=== PATIENT | male | born 1960 | race Caucasian/White ===

== ENCOUNTER 2019-02-16 10:04 | Inpatient (IN) ==
[2019-02-16] MEDS ORDERED: methylPREDNISolone SOD SUC 125 MG/2 ML VIAL IV STA (10:28)
[2019-02-16] MEDS ORDERED: SODIUM CHLORIDE 0.9% 1,000 ML IV STA (10:28)
[2019-02-16] MEDS ORDERED: ALBUTEROL/IPRATROPIUM 3 ML NEB RESP TX STA (10:28)
[2019-02-16] MEDS ORDERED: ONDANSETRON 4 MG/2 ML VIAL IV STA (10:28)
[2019-02-16] MEDS ORDERED: MORPHINE 4 MG/1 ML VIAL IV STA (10:28)
[2019-02-16 10:35] LABS: Basophils # 0.1 10*3/uL (0.0-0.2); Basophils % 0.2 % (0.0-0.8); Eosinophils % 0.1 % (0.00-10.9); Hematocrit 40.9 VOL% (42.0-52.0); Hemoglobin 13.1 GM/DL (14.0-18.0); Immature Granulocytes % 1.8 %; Immature Granulocytes Absolute 0.52 #; Lymphocytes % 3.5 % (21.2-54.2); Mean Corpuscular Volume 89.9 FL (87-102); Mean Platelet Volume 11.1 FL (9.6-12.0); Neutrophils % 88.4 % (38.7-73.9); Platelet Count 333 T/CUMM (130-400); Red Blood Count 4.55 MC/CUMM (3.8-5.5); Red Cell Distribution Width 14.5 % (9.3-17.3)
[2019-02-16 10:53] LABS: ABG Base Excess 4.1 MMOL/L (-2.5-2.5); ABG Oxygen Saturation 93.4 % (95-100); ABG PH 7.372 (7.35-7.45); ABG PO2 74.2 MM HG (80-95); ABG TCO2 26.9 MMOL/L (23-27); Allen Test Positive
[2019-02-16 11:14] LABS: Albumin 1.7 G/DL (3.4-5.0); Calcium 8.1 MG/DL (8.5-10.1); Osmolality,Calculated 279.1 MOS/KG (273-304); Total Protein 5.9 G/DL (6.4-8.3)
[2019-02-16] MEDS ORDERED: LEVOFLOXACIN INJ 750 MG in PREMIX 1 EACH IV STA (11:34)
[2019-02-16 12:04] LABS: Band Neutrophils 8 % (0-10); Lymphocytes 1 % (20-55); Segmented Neutrophils 85 % (50-85); Total Cells Counted 100
[2019-02-16 12:06] LABS: Platelet Estimate Normal; Polychromasia Slight
[2019-02-16] MEDS ORDERED: ONDANSETRON 4 MG/2 ML VIAL IV PRN (12:52)
[2019-02-16] MEDS ORDERED: guaiFENesin/DM ER 600-30 MG TABLET PO PRN (12:52)
[2019-02-16] MEDS ORDERED: ACETAMINOPHEN 325 MG TABLET PO PRN (12:52)
[2019-02-16] MEDS ORDERED: ALBUTEROL 2.5 MG/3 ML NEB RESP TX PRN (13:22)
[2019-02-16] MEDS: ENOXAPARIN 40 MG/0.4 ML SYRINGE SUBCUT SCH (14:30)
[2019-02-16] MEDS: PIPERACILLIN/TAZOBACTAM 3,375 MG in SODIUM CHLORIDE 0.9% 100 ML IV SCH ×2 (14:32→21:25)
[2019-02-16] MEDS: SODIUM CHLORIDE 0.9% 1,000 ML IV SCH (14:32)
[2019-02-16] MEDS: ALBUTEROL/IPRATROPIUM 3 ML NEB RESP TX SCH (19:38)
[2019-02-16 21:09] LABS: Apearance,Urine CLEAR (Clear); Bacteria,Urine Occasional /HPF (Few); Bilirubin,Urine Negative (Negative); Blood, Urine Negative (Negative); Glucose,Urine (UA) Negative (Negative); Ketones,Urine Negative (Negative); Mucus,Urine Occasional /LPF (Occasional); Nitrite,Urine Negative (Negative); Protein,Urine Negative; RBC,Urine 7 /HPF (0-4); Squamous Epithelial Cell,Urine Occasional /HPF (0-10); Urine Color Amber (Yellow); Urine Specific Gravity 1.026 (1.001-1.035); WBC,Urine 75 /HPF (0-6)
[2019-02-16] MEDS: methylPREDNISolone SOD SUC 40 MG/1 ML VIAL IV SCH (21:18)
[2019-02-16 21:40] LABS: Barbiturates Screen,Urine Negative (Negative); Benzodiazepines Screen,Urine Negative (Negative); Cannabinoid Screen,Urine Negative (Negative); Opiate Screen,Urine Positive (Negative); Phencyclidine Screen,Urine Negative (Negative)
[2019-02-17] MEDS: ALBUTEROL/IPRATROPIUM 3 ML NEB RESP TX SCH ×4 (01:10→19:01)
[2019-02-17] MEDS: methylPREDNISolone SOD SUC 40 MG/1 ML VIAL IV SCH ×3 (04:10→20:31)
[2019-02-17] MEDS: SODIUM CHLORIDE 0.9% 1,000 ML IV SCH (04:13)
[2019-02-17 05:08] LABS: Basophils # 0.1 10*3/uL (0.0-0.2); Basophils % 0.4 % (0.0-0.8); Hemoglobin 12.1 GM/DL (14.0-18.0); Immature Granulocytes % 1.2 %; Immature Granulocytes Absolute 0.35 #; Lymphocytes # 0.7 10*3/uL (1.4-4.0); Lymphocytes % 2.4 % (21.2-54.2); Mean Corpuscular HGB Conc 33.6 GM/DL (32-36); Mean Corpuscular Volume 89.1 FL (87-102); Mean Platelet Volume 10.9 FL (9.6-12.0); Monocytes % 2.4 % (1.7-12.7); Neutrophils % 93.6 % (38.7-73.9); Platelet Count 378 T/CUMM (130-400); Red Blood Count 4.04 MC/CUMM (3.8-5.5); Red Cell Distribution Width 14.6 % (9.3-17.3); White Blood Count 29.7 T/CUMM (4-12)
[2019-02-17 05:29] LABS: Albumin 1.3 G/DL (3.4-5.0); Bilirubin,Total 0.5 MG/DL (0.2-1.0); Calcium 8.5 MG/DL (8.5-10.1); Osmolality,Calculated 281.8 MOS/KG (273-304); Risk Ratio 4.21; Total Protein 5.9 G/DL (6.4-8.3); VLDL CHOLESTEROL 16.2 MG/DL
[2019-02-17 05:48] LABS: Band Neutrophils 2 % (0-10); Lymphocytes 2 % (20-55); Segmented Neutrophils 95 % (50-85); Total Cells Counted 100
[2019-02-17 05:49] LABS: Anisocytosis 1+; Platelet Estimate Adequate
[2019-02-17] MEDS: PIPERACILLIN/TAZOBACTAM 3,375 MG in SODIUM CHLORIDE 0.9% 100 ML IV SCH ×3 (06:40→21:24)
[2019-02-17] MEDS: PANTOPRAZOLE 40 MG TABLET PO SCH (08:51)
[2019-02-17] MEDS ORDERED: FUROSEMIDE 40 MG/4 ML VIAL IV ONE (09:16)
[2019-02-17] MEDS: MORPHINE 4 MG/1 ML VIAL IV PRN ×2 (11:03→16:12)
[2019-02-17] MEDS: LEVOFLOXACIN INJ 750 MG in PREMIX 1 EACH IV SCH (11:07)
[2019-02-17] MEDS: ENOXAPARIN 40 MG/0.4 ML SYRINGE SUBCUT SCH (16:14)
[2019-02-17] MEDS: LACTULOSE 20 GM/30 ML UDCUP PO PRN ×2 (18:32→21:23)
[2019-02-17] MEDS ORDERED: SODIUM PHOSPHATE ENEMA 133 ML BOTTLE RECTAL ONE (22:05)
[2019-02-18] MEDS: ALBUTEROL/IPRATROPIUM 3 ML NEB RESP TX SCH ×4 (00:03→19:44)
[2019-02-18] MEDS: methylPREDNISolone SOD SUC 40 MG/1 ML VIAL IV SCH ×3 (04:09→21:37)
[2019-02-18 05:06] LABS: Basophils # 0.1 10*3/uL (0.0-0.2); Basophils % 0.4 % (0.0-0.8); Hematocrit 34.6 VOL% (42.0-52.0); Hemoglobin 11.1 GM/DL (14.0-18.0); Immature Granulocytes % 1.4 %; Immature Granulocytes Absolute 0.41 #; Lymphocytes # 0.9 10*3/uL (1.4-4.0); Mean Corpuscular HGB Conc 32.1 GM/DL (32-36); Mean Corpuscular Volume 91.1 FL (87-102); Mean Platelet Volume 10.5 FL (9.6-12.0); Monocytes % 2.7 % (1.7-12.7); NRBC # 0.02 10*3/uL; Neutrophils % 92.5 % (38.7-73.9); Platelet Count 453 T/CUMM (130-400); Red Cell Distribution Width 14.6 % (9.3-17.3); White Blood Count 29.8 T/CUMM (4-12)
[2019-02-18 05:27] LABS: Hypochromasia 1+; Platelet Estimate Adequate
[2019-02-18 05:38] LABS: Albumin 1.5 G/DL (3.4-5.0); Bilirubin,Total 0.7 MG/DL (0.2-1.0); Calcium 8.7 MG/DL (8.5-10.1); Osmolality,Calculated 286.5 MOS/KG (273-304)
[2019-02-18] MEDS: PIPERACILLIN/TAZOBACTAM 3,375 MG in SODIUM CHLORIDE 0.9% 100 ML IV SCH ×3 (06:05→21:37)
[2019-02-18] MEDS ORDERED: SODIUM PHOSPHATE ENEMA 133 ML BOTTLE RECTAL ONE (06:11)
[2019-02-18] MEDS: PANTOPRAZOLE 40 MG TABLET PO SCH (09:50)
[2019-02-18] MEDS: ENOXAPARIN 40 MG/0.4 ML SYRINGE SUBCUT SCH (09:50)
[2019-02-18] MEDS: OSELTAMIVIR 75 MG CAPSULE PO SCH ×2 (09:50→21:37)
[2019-02-18] MEDS: LEVOFLOXACIN INJ 750 MG in PREMIX 1 EACH IV SCH (11:50)
[2019-02-18] MEDS: LACTULOSE 20 GM/30 ML UDCUP PO PRN (17:26)
[2019-02-18] MEDS: MORPHINE 4 MG/1 ML VIAL IV PRN (21:37)
[2019-02-19] MEDS: ALBUTEROL/IPRATROPIUM 3 ML NEB RESP TX SCH ×4 (01:04→19:13)
[2019-02-19 05:27] LABS: Basophils # 0.1 10*3/uL (0.0-0.2); Basophils % 0.3 % (0.0-0.8); Hematocrit 35.8 VOL% (42.0-52.0); Hemoglobin 11.8 GM/DL (14.0-18.0); Immature Granulocytes % 1.7 %; Immature Granulocytes Absolute 0.38 #; Lymphocytes # 0.9 10*3/uL (1.4-4.0); Lymphocytes % 3.9 % (21.2-54.2); Mean Corpuscular Volume 90.4 FL (87-102); Mean Platelet Volume 10.4 FL (9.6-12.0); Neutrophils % 91.1 % (38.7-73.9); Platelet Count 502 T/CUMM (130-400); Red Blood Count 3.96 MC/CUMM (3.8-5.5); Red Cell Distribution Width 14.6 % (9.3-17.3); White Blood Count 22.2 T/CUMM (4-12)
[2019-02-19] MEDS: methylPREDNISolone SOD SUC 40 MG/1 ML VIAL IV SCH ×3 (05:33→21:15)
[2019-02-19] MEDS: PIPERACILLIN/TAZOBACTAM 3,375 MG in SODIUM CHLORIDE 0.9% 100 ML IV SCH ×3 (05:38→22:30)
[2019-02-19 05:51] LABS: Anisocytosis 1+; Band Neutrophils 2 % (0-10); Lymphocytes 4 % (20-55); Metamyelocytes 1 %; Platelet Estimate Increased; Segmented Neutrophils 91 % (50-85); Total Cells Counted 100; Toxic Granulation 1+
[2019-02-19 06:15] LABS: Albumin 1.6 G/DL (3.4-5.0); Bilirubin,Total 0.4 MG/DL (0.2-1.0); Osmolality,Calculated 283.5 MOS/KG (273-304)
[2019-02-19 09:07] LABS: Band Neutrophils 2 % (0-10); Lymphocytes 4 % (20-55); Segmented Neutrophils 91 % (50-85); Total Cells Counted 100
[2019-02-19] MEDS: ENOXAPARIN 40 MG/0.4 ML SYRINGE SUBCUT SCH (09:26)
[2019-02-19] MEDS: PANTOPRAZOLE 40 MG TABLET PO SCH (09:27)
[2019-02-19] MEDS: OSELTAMIVIR 75 MG CAPSULE PO SCH ×2 (09:27→21:15)
[2019-02-19] MEDS: LEVOFLOXACIN INJ 750 MG in PREMIX 1 EACH IV SCH (09:27)
[2019-02-19] MEDS: LACTULOSE 20 GM/30 ML UDCUP PO PRN ×2 (09:27→21:15)
[2019-02-19] MEDS: SODIUM CHLORIDE 0.9% 1,000 ML IV SCH (14:45)
[2019-02-20] MEDS: ALBUTEROL/IPRATROPIUM 3 ML NEB RESP TX SCH ×4 (01:09→19:32)
[2019-02-20] MEDS: methylPREDNISolone SOD SUC 40 MG/1 ML VIAL IV SCH ×3 (05:29→20:30)
[2019-02-20] MEDS: SODIUM CHLORIDE 0.9% 1,000 ML IV SCH ×2 (05:32→18:39)
[2019-02-20 05:41] LABS: Basophils # 0.1 10*3/uL (0.0-0.2); Basophils % 0.3 % (0.0-0.8); Hematocrit 38.1 VOL% (42.0-52.0); Immature Granulocytes % 1.8 %; Immature Granulocytes Absolute 0.35 #; Lymphocytes # 0.7 10*3/uL (1.4-4.0); Lymphocytes % 3.9 % (21.2-54.2); Mean Corpuscular HGB Conc 31.5 GM/DL (32-36); Mean Corpuscular Volume 91.1 FL (87-102); Mean Platelet Volume 9.9 FL (9.6-12.0); Monocytes % 3.2 % (1.7-12.7); Neutrophils % 90.8 % (38.7-73.9); Platelet Count 514 T/CUMM (130-400); Red Blood Count 4.18 MC/CUMM (3.8-5.5); Red Cell Distribution Width 14.5 % (9.3-17.3)
[2019-02-20 06:05] LABS: Albumin 1.5 G/DL (3.4-5.0); Bilirubin,Total 0.5 MG/DL (0.2-1.0); Calcium 8.3 MG/DL (8.5-10.1); Osmolality,Calculated 282.7 MOS/KG (273-304); Total Protein 5.6 G/DL (6.4-8.3)
[2019-02-20] MEDS: PIPERACILLIN/TAZOBACTAM 3,375 MG in SODIUM CHLORIDE 0.9% 100 ML IV SCH ×2 (06:09→15:55)
[2019-02-20 06:21] LABS: Band Neutrophils 2 % (0-10); Lymphocytes 1 % (20-55); Segmented Neutrophils 96 % (50-85); Total Cells Counted 100
[2019-02-20 06:22] LABS: Anisocytosis 1+; Ovalocytes Few; Platelet Estimate Increased
[2019-02-20] MEDS: LACTULOSE 20 GM/30 ML UDCUP PO PRN (09:09)
[2019-02-20] MEDS: OSELTAMIVIR 75 MG CAPSULE PO SCH ×2 (09:09→20:30)
[2019-02-20] MEDS: ENOXAPARIN 40 MG/0.4 ML SYRINGE SUBCUT SCH (09:09)
[2019-02-20] MEDS: PANTOPRAZOLE 40 MG TABLET PO SCH (10:19)
[2019-02-20] MEDS: LEVOFLOXACIN INJ 750 MG in PREMIX 1 EACH IV SCH (10:19)
[2019-02-20 20:12] VITALS: BP 133/89
== END 2019-02-20 21:52 | disposition home or self-care (01) | DRG 193 ==
LOC: EDUNIT# → N.ED 10:04 → N.EDINP 12:52 → N.2E 14:16
PROVIDERS: ADMIT Internal Medicine; ATTEND Internal Medicine

== ENCOUNTER 2019-04-02 20:55 | Inpatient (IN) ==
[2019-04-02 22:55] LABS: Alanine Aminotransferase 9 U/L (16-61); Alkaline Phosphatase 114 U/L (45-117); Aspartate Amino Transferase 14 U/L (0-37); Bilirubin,Total < 0.39 MG/DL (0.2-1.0); Blood Urea Nitrogen 15 MG/DL (7-18); Calcium 9.3 MG/DL (8.5-10.1); Glucose 112 MG/DL (74-106); Osmolality,Calculated 276.7 MOS/KG (273-304); Total Protein 7.5 G/DL (6.4-8.3)
[2019-04-02] MEDS ORDERED: methylPREDNISolone SOD SUC 125 MG/2 ML VIAL IV STA (23:01)
[2019-04-02] MEDS ORDERED: MORPHINE 4 MG/1 ML VIAL IV STA (23:01)
[2019-04-02] MEDS ORDERED: SODIUM CHLORIDE 0.9% 500 ML IV STA (23:01)
[2019-04-02] MEDS ORDERED: ONDANSETRON 4 MG/2 ML VIAL IV STA (23:01)
[2019-04-02 23:12] LABS: Basophils # 0.1 10*3/uL (0.0-0.2); Basophils % 0.4 % (0.0-0.8); Eosinophils # 0.3 10*3/uL (0.0-0.87); Eosinophils % 1.8 % (0.00-10.9); Hematocrit 27.6 VOL% (42.0-52.0); Hemoglobin 8.4 GM/DL (14.0-18.0); Immature Granulocytes % 0.7 %; Immature Granulocytes Absolute 0.13 #; Lymphocytes # 1.9 10*3/uL (1.4-4.0); Lymphocytes % 10.3 % (21.2-54.2); Mean Corpuscular HGB Conc 30.4 GM/DL (32-36); Mean Corpuscular Volume 90.8 FL (87-102); Mean Platelet Volume 9.8 FL (9.6-12.0); Monocytes % 7.5 % (1.7-12.7); Neutrophils % 79.3 % (38.7-73.9); Platelet Count 586 T/CUMM (130-400); Red Blood Count 3.04 MC/CUMM (3.8-5.5); Red Cell Distribution Width 13.8 % (9.3-17.3); White Blood Count 18.8 T/CUMM (4-12)
[2019-04-02] MEDS ORDERED: ALBUTEROL 2.5 MG/3 ML NEB RESP TX SCH (23:30)
[2019-04-02 23:49] LABS: PT Patient Result 11.1 SECS
[2019-04-03] MEDS ORDERED: ONDANSETRON 4 MG/2 ML VIAL IV PRN (02:17)
[2019-04-03] MEDS: ALBUTEROL/IPRATROPIUM 3 ML NEB RESP TX SCH ×6 (03:48→23:36)
[2019-04-03] MEDS: AZITHROMYCIN INJ 500 MG in SODIUM CHLORIDE 0.9% 250 ML IV SCH (04:10)
[2019-04-03] MEDS: SODIUM CHLORIDE 0.9% 1,000 ML IV SCH ×3 (04:10→21:26)
[2019-04-03 05:17] LABS: Basophils % 0.1 % (0.0-0.8); Hematocrit 30.7 VOL% (42.0-52.0); Hemoglobin 9.3 GM/DL (14.0-18.0); Immature Granulocytes % 0.6 %; Immature Granulocytes Absolute 0.12 #; Lymphocytes # 0.4 10*3/uL (1.4-4.0); Lymphocytes % 1.8 % (21.2-54.2); Mean Corpuscular HGB Conc 30.3 GM/DL (32-36); Mean Corpuscular Volume 93.6 FL (87-102); Mean Platelet Volume 10.5 FL (9.6-12.0); Monocytes % 0.6 % (1.7-12.7); Neutrophils % 96.9 % (38.7-73.9); Platelet Count 574 T/CUMM (130-400); Red Blood Count 3.28 MC/CUMM (3.8-5.5); Red Cell Distribution Width 13.9 % (9.3-17.3); White Blood Count 21.7 T/CUMM (4-12)
[2019-04-03 05:33] LABS: Calcium 9.5 MG/DL (8.5-10.1); Osmolality,Calculated 284.5 MOS/KG (273-304)
[2019-04-03 05:40] LABS: Hypochromasia 1+; Lymphocytes 1 % (20-55); Platelet Estimate Adequate; Segmented Neutrophils 98 % (50-85); Total Cells Counted 100
[2019-04-03] MEDS: ACETAMINOPHEN 500 MG TABLET PO SCH ×4 (06:34→23:18)
[2019-04-03] MEDS: ENOXAPARIN 40 MG/0.4 ML SYRINGE SUBCUT SCH (09:00)
[2019-04-03] MEDS: methylPREDNISolone SOD SUC 40 MG/1 ML VIAL IV SCH ×2 (09:00→17:22)
[2019-04-03] MEDS: PANTOPRAZOLE 40 MG TABLET PO SCH (09:00)
[2019-04-03 18:37] LABS: Apearance,Urine CLEAR (Clear); Bacteria,Urine Occasional /HPF (Few); Bilirubin,Urine Negative (Negative); Blood, Urine Negative (Negative); Glucose,Urine (UA) >=500 mg/dL (Negative); Hyaline Casts,Urine 1 /LPF (0-3); Ketones,Urine Negative (Negative); Mucus,Urine Occasional /LPF (Occasional); Nitrite,Urine Negative (Negative); Protein,Urine Negative; RBC,Urine 3 /HPF (0-4); Squamous Epithelial Cell,Urine Occasional /HPF (0-10); Urine Color Yellow (Yellow); Urine Specific Gravity 1.032 (1.001-1.035); WBC,Urine 3 /HPF (0-6)
[2019-04-03 18:43] LABS: Barbiturates Screen,Urine Negative (Negative); Benzodiazepines Screen,Urine Negative (Negative); Cannabinoid Screen,Urine Negative (Negative); Opiate Screen,Urine Positive (Negative); Phencyclidine Screen,Urine Negative (Negative)
[2019-04-04] MEDS: methylPREDNISolone SOD SUC 40 MG/1 ML VIAL IV SCH ×2 (01:52→09:44)
[2019-04-04] MEDS: AZITHROMYCIN INJ 500 MG in SODIUM CHLORIDE 0.9% 250 ML IV SCH (01:53)
[2019-04-04] MEDS: ALBUTEROL/IPRATROPIUM 3 ML NEB RESP TX SCH ×4 (03:10→15:59)
[2019-04-04] MEDS: ACETAMINOPHEN 500 MG TABLET PO SCH ×3 (05:53→18:19)
[2019-04-04] MEDS: ENOXAPARIN 40 MG/0.4 ML SYRINGE SUBCUT SCH (08:39)
[2019-04-04] MEDS: PANTOPRAZOLE 40 MG TABLET PO SCH (08:40)
[2019-04-04] MEDS ORDERED: predniSONE 10 MG TABLET PO SCH (09:30)
[2019-04-04] MEDS ORDERED: KETOROLAC 30 MG/1 ML VIAL IM ONE (14:39)
[2019-04-04 16:40] VITALS: BP 105/70
== END 2019-04-04 18:53 | disposition home or self-care (01) | DRG 140 ==
LOC: N.ED 20:55 → N.EDINP 04-03 02:17 → N.5E 04-03 03:54
PROVIDERS: ADMIT Internal Medicine Geriatric Medicine; ATTEND Internal Medicine Geriatric Medicine

== ENCOUNTER 2019-11-05 18:16 | Inpatient (IN) ==
[2019-11-05] MEDS ORDERED: ONDANSETRON 4 MG/2 ML VIAL IV STA (18:35)
[2019-11-05] MEDS ORDERED: ASPIRIN 325 MG TABLET PO STA (18:35)
[2019-11-05] MEDS ORDERED: MORPHINE 4 MG/1 ML VIAL IV STA (18:35)
[2019-11-05 18:49] LABS: Basophils # 0.1 10*3/uL (0.0-0.2); Basophils % 0.7 % (0.0-0.8); Eosinophils # 0.3 10*3/uL (0.0-0.87); Eosinophils % 2.9 % (0.00-10.9); Hematocrit 40.8 VOL% (42.0-52.0); Hemoglobin 12.7 GM/DL (14.0-18.0); Immature Granulocytes % 0.3 %; Immature Granulocytes Absolute 0.03 #; Lymphocytes # 2.9 10*3/uL (1.4-4.0); Lymphocytes % 33.1 % (21.2-54.2); Mean Corpuscular HGB Conc 31.1 GM/DL (32-36); Mean Corpuscular Volume 99.3 FL (87-102); Mean Platelet Volume 10.5 FL (9.6-12.0); Monocytes % 8.6 % (1.7-12.7); Neutrophils % 54.4 % (38.7-73.9); Platelet Count 195 T/CUMM (130-400); Red Blood Count 4.11 MC/CUMM (3.8-5.5); Red Cell Distribution Width 13.6 % (9.3-17.3); White Blood Count 8.7 T/CUMM (4-12)
[2019-11-05 19:06] LABS: INR 0.9; PT Patient Result 9.9 SECS (9.6-12.2)
[2019-11-05 19:10] LABS: Alanine Aminotransferase 11 U/L (16-61); Alkaline Phosphatase 113 U/L (45-117); Aspartate Amino Transferase 11 U/L (0-37); Bilirubin,Total < 0.39 MG/DL (0.2-1.0); Blood Urea Nitrogen 15 MG/DL (7-18); Calcium 8.6 MG/DL (8.5-10.1); Estimated Glom Filtration Rate 96 ML/MIN; Glucose 104 MG/DL (74-106); Osmolality,Calculated 279.4 MOS/KG (273-304); Total Protein 6.1 G/DL (6.4-8.3)
[2019-11-05 19:18] LABS: Apearance,Urine CLEAR (Clear); Bilirubin,Urine Negative (Negative); Blood, Urine Negative (Negative); Glucose,Urine (UA) Negative (Negative); Ketones,Urine Negative (Negative); Mucus,Urine Occasional /LPF (Occasional); Nitrite,Urine Negative (Negative); Protein,Urine Negative; Squamous Epithelial Cell,Urine Occasional /HPF (0-10); Urine Color Yellow (Yellow); Urine Specific Gravity 1.041 (1.001-1.035)
[2019-11-05 19:24] LABS: Barbiturates Screen,Urine Negative (Negative); Benzodiazepines Screen,Urine Negative (Negative); Cannabinoid Screen,Urine Negative (Negative); Opiate Screen,Urine Negative (Negative); Phencyclidine Screen,Urine Negative (Negative)
[2019-11-05] MEDS ORDERED: ONDANSETRON 4 MG/2 ML VIAL IV PRN (20:44)
[2019-11-05 21:13] LABS: Risk Ratio 3.59; VLDL CHOLESTEROL 38.6 MG/DL
[2019-11-05 21:45] LABS: Troponin I < 0.015 NG/ML (0.00-0.045)
[2019-11-05] MEDS: ENOXAPARIN 40 MG/0.4 ML SYRINGE SUBCUT SCH (22:46)
[2019-11-05] MEDS: ACETAMINOPHEN 325 MG TABLET PO PRN (22:47)
[2019-11-05] MEDS: DOXYCYCLINE HYCLATE 100 MG CAPSULE PO SCH (22:49)
[2019-11-05] MEDS ORDERED: ALBUTEROL/IPRATROPIUM 3 ML NEB RESP TX ONE (23:54)
[2019-11-06] MEDS: ALBUTEROL/IPRATROPIUM 3 ML NEB RESP TX SCH ×4 (00:04→19:45)
[2019-11-06] MEDS ORDERED: INFLUENZA VIRUS VACCINE 0.5 ML SYRINGE IM ONE (00:09)
[2019-11-06 05:34] LABS: Basophils # 0.1 10*3/uL (0.0-0.2); Basophils % 0.8 % (0.0-0.8); Eosinophils # 0.3 10*3/uL (0.0-0.87); Eosinophils % 3.4 % (0.00-10.9); Hematocrit 39.4 VOL% (42.0-52.0); Hemoglobin 11.9 GM/DL (14.0-18.0); Immature Granulocytes % 0.3 %; Immature Granulocytes Absolute 0.03 #; Lymphocytes # 3.4 10*3/uL (1.4-4.0); Lymphocytes % 39.1 % (21.2-54.2); Mean Corpuscular HGB Conc 30.2 GM/DL (32-36); Mean Corpuscular Volume 99.7 FL (87-102); Mean Platelet Volume 10.5 FL (9.6-12.0); Monocytes % 7.6 % (1.7-12.7); Neutrophils % 48.8 % (38.7-73.9); Platelet Count 190 T/CUMM (130-400); Red Blood Count 3.95 MC/CUMM (3.8-5.5); Red Cell Distribution Width 13.7 % (9.3-17.3); White Blood Count 8.6 T/CUMM (4-12)
[2019-11-06 05:59] LABS: Calcium 8.5 MG/DL (8.5-10.1); Osmolality,Calculated 282.1 MOS/KG (273-304)
[2019-11-06 06:04] LABS: Troponin I < 0.015 NG/ML (0.00-0.045)
[2019-11-06] MEDS: DOXYCYCLINE HYCLATE 100 MG CAPSULE PO SCH ×2 (09:14→21:58)
[2019-11-06] MEDS: predniSONE 20 MG TABLET PO SCH (09:14)
[2019-11-06] MEDS: PANTOPRAZOLE 40 MG TABLET PO SCH (09:14)
[2019-11-06] MEDS: NICOTINE 7 MG/24 HR PATCH TRANSDERM SCH (09:14)
[2019-11-06] MEDS: ACETAMINOPHEN 325 MG TABLET PO PRN ×2 (09:20→22:01)
[2019-11-06 09:56] LABS: Troponin I < 0.015 NG/ML (0.00-0.045)
[2019-11-06] MEDS: ENOXAPARIN 40 MG/0.4 ML SYRINGE SUBCUT SCH (21:58)
[2019-11-07] MEDS: ALBUTEROL/IPRATROPIUM 3 ML NEB RESP TX SCH ×4 (01:12→19:32)
[2019-11-07 05:37] LABS: Basophils % 0.4 % (0.0-0.8); Eosinophils % 0.3 % (0.00-10.9); Hematocrit 40.6 VOL% (42.0-52.0); Hemoglobin 12.9 GM/DL (14.0-18.0); Immature Granulocytes % 0.1 %; Immature Granulocytes Absolute 0.01 #; Lymphocytes % 30.6 % (21.2-54.2); Mean Corpuscular HGB Conc 31.8 GM/DL (32-36); Mean Corpuscular Volume 97.4 FL (87-102); Mean Platelet Volume 10.8 FL (9.6-12.0); Monocytes % 8.5 % (1.7-12.7); Neutrophils % 60.1 % (38.7-73.9); Platelet Count 197 T/CUMM (130-400); Red Blood Count 4.17 MC/CUMM (3.8-5.5); Red Cell Distribution Width 13.7 % (9.3-17.3); White Blood Count 9.9 T/CUMM (4-12)
[2019-11-07 06:19] LABS: Calcium 9.2 MG/DL (8.5-10.1); Osmolality,Calculated 280.4 MOS/KG (273-304)
[2019-11-07] MEDS: NICOTINE 7 MG/24 HR PATCH TRANSDERM SCH (08:36)
[2019-11-07] MEDS: PANTOPRAZOLE 40 MG TABLET PO SCH (08:36)
[2019-11-07] MEDS: predniSONE 20 MG TABLET PO SCH (08:36)
[2019-11-07] MEDS: DOXYCYCLINE HYCLATE 100 MG CAPSULE PO SCH ×2 (08:36→21:13)
[2019-11-07] MEDS: ACETAMINOPHEN 325 MG TABLET PO PRN (08:58)
[2019-11-07] MEDS: OMEGA 3 ACID ETHYL ESTERS 1 GM CAPSULE PO SCH ×2 (13:46→21:13)
[2019-11-07] MEDS: ENOXAPARIN 40 MG/0.4 ML SYRINGE SUBCUT SCH (21:13)
[2019-11-08] MEDS: ALBUTEROL/IPRATROPIUM 3 ML NEB RESP TX SCH ×3 (01:54→13:09)
[2019-11-08 05:30] LABS: Calcium 8.9 MG/DL (8.5-10.1); Osmolality,Calculated 277.5 MOS/KG (273-304)
[2019-11-08 08:12] LABS: Basophils # 0.1 10*3/uL (0.0-0.2); Basophils % 0.6 % (0.0-0.8); Eosinophils # 0.1 10*3/uL (0.0-0.87); Eosinophils % 1.5 % (0.00-10.9); Hematocrit 40.6 VOL% (42.0-52.0); Immature Granulocytes % 0.1 %; Immature Granulocytes Absolute 0.01 #; Lymphocytes % 47.6 % (21.2-54.2); Mean Corpuscular Volume 95.8 FL (87-102); Mean Platelet Volume 10.6 FL (9.6-12.0); Monocytes % 6.5 % (1.7-12.7); Neutrophils % 43.7 % (38.7-73.9); Platelet Count 209 T/CUMM (130-400); Red Blood Count 4.24 MC/CUMM (3.8-5.5); Red Cell Distribution Width 13.7 % (9.3-17.3); White Blood Count 8.5 T/CUMM (4-12)
[2019-11-08] MEDS: DOXYCYCLINE HYCLATE 100 MG CAPSULE PO SCH (09:36)
[2019-11-08] MEDS: OMEGA 3 ACID ETHYL ESTERS 1 GM CAPSULE PO SCH (09:36)
[2019-11-08] MEDS: NICOTINE 7 MG/24 HR PATCH TRANSDERM SCH (09:36)
[2019-11-08] MEDS: PANTOPRAZOLE 40 MG TABLET PO SCH (09:37)
[2019-11-08] MEDS: predniSONE 20 MG TABLET PO SCH (09:37)
[2019-11-08 12:53] VITALS: BP 102/65
== END 2019-11-08 17:30 | disposition home or self-care (01) | DRG 140 ==
LOC: EDUNIT# → EDBD → N.ED 18:16 → N.EDINP 18:16 → N.4E 21:09
PROVIDERS: ADMIT Internal Medicine; ATTEND Internal Medicine

== ENCOUNTER 2020-11-09 05:34 | Inpatient (IN) ==
[2020-11-09 06:04] LABS: Basophils # 0.1 10*3/uL (0.0-0.2); Basophils % 0.6 % (0.0-0.8); Eosinophils # 0.1 10*3/uL (0.0-0.87); Eosinophils % 0.9 % (0.00-10.9); Hematocrit 44.6 VOL% (42.0-52.0); Hemoglobin 13.6 GM/DL (14.0-18.0); Immature Granulocytes % 0.3 %; Immature Granulocytes Absolute 0.03 #; Lymphocytes # 2.3 10*3/uL (1.4-4.0); Lymphocytes % 24.8 % (21.2-54.2); Mean Corpuscular HGB Conc 30.5 GM/DL (32-36); Mean Corpuscular Volume 100.5 FL (87-102); Mean Platelet Volume 10.4 FL (9.6-12.0); Monocytes % 8.9 % (1.7-12.7); Neutrophils % 64.5 % (38.7-73.9); Platelet Count 291 T/CUMM (130-400); Red Blood Count 4.44 MC/CUMM (3.8-5.5); Red Cell Distribution Width 14.1 % (9.3-17.3); White Blood Count 9.4 T/CUMM (4-12)
[2020-11-09 06:17] LABS: Albumin 2.9 G/DL (3.4-5.0); Bilirubin,Total 0.4 MG/DL (0.2-1.0); Calcium 8.6 MG/DL (8.5-10.1); Osmolality,Calculated 286.3 MOS/KG (273-304); Potassium 5.1 MMOL/L (3.5-5.1); Total Protein 6.2 G/DL (5.0-7.5)
[2020-11-09] MEDS ORDERED: PIPERACILLIN/TAZOBACTAM 3,375 MG in SODIUM CHLORIDE 0.9% 100 ML IV STA (07:05)
[2020-11-09] MEDS ORDERED: MAGNESIUM SULF RIDER 2 GM in PREMIX 1 EACH IV STA (07:05)
[2020-11-09] MEDS ORDERED: methylPREDNISolone SOD SUC 125 MG/2 ML VIAL IV STA (07:06)
[2020-11-09] MEDS ORDERED: ALBUTEROL NEB SOLN 5 MG/ML 20 ML/BOTTLE CONT NEB STA (07:06)
[2020-11-09] MEDS ORDERED: ETOMIDATE 20 MG/10 ML VIAL IV STA (07:10)
[2020-11-09] MEDS ORDERED: ROCURONIUM 100 MG/10 ML VIAL IV STA ×2 (07:10→08:29)
[2020-11-09] MEDS ORDERED: ETOMIDATE 20 MG/10 ML VIAL IV ONE (07:15)
[2020-11-09] MEDS ORDERED: ROCURONIUM 100 MG/10 ML VIAL IV ONE ×2 (07:16→08:27)
[2020-11-09] MEDS ORDERED: ALBUTEROL 2.5 MG/3 ML NEB RESP TX PRN (07:58)
[2020-11-09] MEDS: FAMOTIDINE 20 MG/2 ML VIAL IV SCH ×2 (08:00→20:21)
[2020-11-09] MEDS: SODIUM CHLORIDE 0.9% 1,000 ML IV SCH ×3 (08:00→20:22)
[2020-11-09 08:13] LABS: ABG Base Excess 3.3 MMOL/L (-2.5-2.5); ABG HCO3 27.4 MMOL/L (20-26); ABG PCO2 46.9 MM HG (35-48); ABG PH 7.398 (7.35-7.45); ABG TCO2 25.1 MMOL/L (23-27); Pt O2 Delivery Device Ventilator
[2020-11-09] MEDS: methylPREDNISolone SOD SUC 40 MG/1 ML VIAL IV SCH ×2 (10:30→17:35)
[2020-11-09] MEDS: cefTRIAXone 1,000 MG in SYRINGE 1 EACH IV SCH (10:35)
[2020-11-09] MEDS: AZITHROMYCIN INJ 250 MG in SODIUM CHLORIDE 0.9% 250 ML IV SCH (12:00)
[2020-11-09] MEDS: ALBUTEROL/IPRATROPIUM 3 ML NEB RESP TX SCH ×2 (15:00→19:23)
[2020-11-10] MEDS: methylPREDNISolone SOD SUC 40 MG/1 ML VIAL IV SCH ×3 (00:01→18:32)
[2020-11-10] MEDS: ALBUTEROL/IPRATROPIUM 3 ML NEB RESP TX SCH ×4 (02:22→19:38)
[2020-11-10] MEDS: SODIUM CHLORIDE 0.9% 1,000 ML IV SCH ×2 (04:00→11:37)
[2020-11-10 04:40] LABS: ABG Base Excess 0.2 MMOL/L (-2.5-2.5); ABG HCO3 26.4 MMOL/L (20-26); ABG PCO2 48.8 MM HG (35-48); ABG PH 7.351 (7.35-7.45); ABG PO2 68.4 MM HG (80-95); ABG TCO2 27.9 MMOL/L (23-27)
[2020-11-10 04:51] LABS: INR 1.2; PT Patient Result 12.7 SECS (9.8-11.9)
[2020-11-10 05:01] LABS: Basophils % 0.1 % (0.0-0.8); Hematocrit 42.6 VOL% (42.0-52.0); Hemoglobin 13.5 GM/DL (14.0-18.0); Immature Granulocytes % 0.4 %; Immature Granulocytes Absolute 0.04 #; Lymphocytes # 0.6 10*3/uL (1.4-4.0); Lymphocytes % 5.6 % (21.2-54.2); Mean Corpuscular HGB Conc 31.7 GM/DL (32-36); Mean Corpuscular Volume 95.9 FL (87-102); Mean Platelet Volume 11.6 FL (9.6-12.0); Monocytes % 3.7 % (1.7-12.7); Neutrophils % 90.2 % (38.7-73.9); Platelet Count 163 T/CUMM (130-400); Red Blood Count 4.44 MC/CUMM (3.8-5.5); Red Cell Distribution Width 13.9 % (9.3-17.3); White Blood Count 11.2 T/CUMM (4-12)
[2020-11-10 05:06] LABS: Hypochromasia 1+; Microcytosis 1+
[2020-11-10 05:07] LABS: Ovalocytes Slight
[2020-11-10 05:13] LABS: Albumin 2.4 G/DL (3.4-5.0); Bilirubin,Total 0.7 MG/DL (0.2-1.0); Calcium 8.1 MG/DL (8.5-10.1); Osmolality,Calculated 287.3 MOS/KG (273-304); Potassium 5.1 MMOL/L (3.5-5.1); Total Protein 5.8 G/DL (5.0-7.5)
[2020-11-10] MEDS ORDERED: DEXTROSE 50% 25 GM/50 ML VIAL IV PRN (08:12)
[2020-11-10] MEDS ORDERED: GLUCAGON 1 MG VIAL IM PRN (08:12)
[2020-11-10] MEDS: FAMOTIDINE 20 MG/2 ML VIAL IV SCH ×2 (08:40→20:31)
[2020-11-10] MEDS: ENOXAPARIN 40 MG/0.4 ML SYRINGE SUBCUT SCH (08:40)
[2020-11-10] MEDS ORDERED: RIFAXIMIN 550 MG TABLET PER TUBE SCH (09:00)
[2020-11-10] MEDS: cefTRIAXone 1,000 MG in SYRINGE 1 EACH IV SCH (10:01)
[2020-11-10] MEDS: RIFAMPIN 300 MG CAPSULE PO SCH ×2 (11:32→20:31)
[2020-11-10] MEDS: AZITHROMYCIN INJ 250 MG in SODIUM CHLORIDE 0.9% 250 ML IV SCH (11:34)
[2020-11-10] MEDS ORDERED: PHENYLEPHRINE INJ 80 MG in SODIUM CHLORIDE 0.9% 242 ML IV PRN (12:41)
[2020-11-10] MEDS: BUDESONIDE 0.5 MG/2 ML NEB RESP TX SCH ×2 (13:34→19:38)
[2020-11-10] MEDS: INSULIN LISPRO 100 UNIT/ML SUBCUT SCH ×2 (14:52→18:31)
[2020-11-10] MEDS ORDERED: FUROSEMIDE 40 MG/4 ML VIAL IM SCH (16:00)
[2020-11-10] MEDS: FUROSEMIDE 40 MG/4 ML VIAL IV SCH (16:30)
[2020-11-11] MEDS: INSULIN LISPRO 100 UNIT/ML SUBCUT SCH ×5 (00:24→23:44)
[2020-11-11] MEDS: ALBUTEROL/IPRATROPIUM 3 ML NEB RESP TX SCH ×4 (00:46→19:27)
[2020-11-11] MEDS: methylPREDNISolone SOD SUC 40 MG/1 ML VIAL IV SCH ×3 (02:20→16:05)
[2020-11-11 04:26] LABS: ABG Base Excess 3.4 MMOL/L (-2.5-2.5); ABG HCO3 27.1 MMOL/L (20-26); ABG Oxygen Saturation 98.5 % (95-100); ABG PCO2 38.2 MM HG (35-48); ABG PH 7.469 (7.35-7.45); ABG PO2 127.4 MM HG (80-95); ABG TCO2 28.3 MMOL/L (23-27)
[2020-11-11 05:03] LABS: Basophils % 0.1 % (0.0-0.8); Hematocrit 40.8 VOL% (42.0-52.0); Hemoglobin 12.8 GM/DL (14.0-18.0); Immature Granulocytes % 0.4 %; Immature Granulocytes Absolute 0.07 #; Lymphocytes # 0.9 10*3/uL (1.4-4.0); Lymphocytes % 5.4 % (21.2-54.2); Mean Corpuscular HGB Conc 31.4 GM/DL (32-36); Mean Corpuscular Volume 96.2 FL (87-102); Mean Platelet Volume 10.8 FL (9.6-12.0); Monocytes % 4.4 % (1.7-12.7); NRBC # 0.02 10*3/uL; Neutrophils % 89.7 % (38.7-73.9); Platelet Count 328 T/CUMM (130-400); Red Blood Count 4.24 MC/CUMM (3.8-5.5); Red Cell Distribution Width 14.5 % (9.3-17.3); White Blood Count 15.7 T/CUMM (4-12)
[2020-11-11 05:22] LABS: Calcium 8.2 MG/DL (8.5-10.1); Osmolality,Calculated 291.3 MOS/KG (273-304); Potassium 4.9 MMOL/L (3.5-5.1)
[2020-11-11] MEDS: BUDESONIDE 0.5 MG/2 ML NEB RESP TX SCH ×2 (07:26→19:27)
[2020-11-11] MEDS: FUROSEMIDE 40 MG/4 ML VIAL IV SCH ×2 (07:48→16:05)
[2020-11-11] MEDS: FAMOTIDINE 20 MG/2 ML VIAL IV SCH ×2 (07:48→19:20)
[2020-11-11] MEDS: ENOXAPARIN 40 MG/0.4 ML SYRINGE SUBCUT SCH (08:43)
[2020-11-11] MEDS: RIFAMPIN 300 MG CAPSULE PO SCH ×2 (08:48→20:03)
[2020-11-11] MEDS: cefTRIAXone 1,000 MG in SYRINGE 1 EACH IV SCH (08:49)
[2020-11-11] MEDS: AZITHROMYCIN INJ 250 MG in SODIUM CHLORIDE 0.9% 250 ML IV SCH (11:24)
[2020-11-11] MEDS: DEXMEDETOMIDINE 200 MCG in SODIUM CHLORIDE 0.9% 48 ML IV PRN (11:27)
[2020-11-11] MEDS ORDERED: ACETYLCYSTEINE 20% 800 MG/4 ML VIAL RESP TX SCH (15:00)
[2020-11-11] MEDS: ACETYLCYSTEINE 20% 800 MG/4 ML VIAL RESP TX SCH (19:27)
[2020-11-11 23:08] LABS: Osmolality,Calculated 289.4 MOS/KG (273-304); Potassium 4.2 MMOL/L (3.5-5.1)
[2020-11-12] MEDS: ALBUTEROL/IPRATROPIUM 3 ML NEB RESP TX SCH ×5 (01:00→19:31)
[2020-11-12] MEDS: methylPREDNISolone SOD SUC 40 MG/1 ML VIAL IV SCH ×2 (02:30→13:31)
[2020-11-12 04:45] LABS: ABG Base Excess 7.2 MMOL/L (-2.5-2.5); ABG Oxygen Saturation 98.5 % (95-100); ABG PCO2 40.7 MM HG (35-48); ABG PH 7.492 (7.35-7.45); ABG TCO2 26.7 MMOL/L (23-27); Allen Test Positive; Pt O2 Delivery Device Ventilator
[2020-11-12 05:27] LABS: Basophils % 0.2 % (0.0-0.8); Hematocrit 41.6 VOL% (42.0-52.0); Hemoglobin 13.4 GM/DL (14.0-18.0); Immature Granulocytes % 0.4 %; Immature Granulocytes Absolute 0.07 #; Lymphocytes # 2.7 10*3/uL (1.4-4.0); Lymphocytes % 17.2 % (21.2-54.2); Mean Corpuscular HGB Conc 32.2 GM/DL (32-36); Mean Corpuscular Volume 93.9 FL (87-102); Mean Platelet Volume 11.1 FL (9.6-12.0); Neutrophils % 73.2 % (38.7-73.9); Platelet Count 333 T/CUMM (130-400); Red Blood Count 4.43 MC/CUMM (3.8-5.5); Red Cell Distribution Width 14.5 % (9.3-17.3)
[2020-11-12 05:56] LABS: Calcium 7.8 MG/DL (8.5-10.1); Potassium 4.6 MMOL/L (3.5-5.1)
[2020-11-12] MEDS: INSULIN LISPRO 100 UNIT/ML SUBCUT SCH ×3 (06:00→18:02)
[2020-11-12] MEDS: ACETYLCYSTEINE 20% 800 MG/4 ML VIAL RESP TX SCH ×2 (07:41→19:31)
[2020-11-12] MEDS: BUDESONIDE 0.5 MG/2 ML NEB RESP TX SCH ×2 (07:41→19:31)
[2020-11-12] MEDS: FAMOTIDINE 20 MG/2 ML VIAL IV SCH ×2 (08:25→20:58)
[2020-11-12] MEDS: FUROSEMIDE 40 MG/4 ML VIAL IV SCH ×2 (08:25→15:39)
[2020-11-12] MEDS: RIFAMPIN 300 MG CAPSULE PO SCH ×2 (08:26→21:00)
[2020-11-12] MEDS: cefTRIAXone 1,000 MG in SYRINGE 1 EACH IV SCH (08:26)
[2020-11-12] MEDS: ENOXAPARIN 40 MG/0.4 ML SYRINGE SUBCUT SCH (08:26)
[2020-11-12] MEDS ORDERED: MIDAZOLAM 100 MG in SODIUM CHLORIDE 0.9% 80 ML IV PRN (09:59)
[2020-11-12] MEDS: PHENYLEPHRINE DRIP 40 MG/250 ML PREMIX IV PRN (10:12)
[2020-11-12] MEDS: AZITHROMYCIN INJ 250 MG in SODIUM CHLORIDE 0.9% 250 ML IV SCH (10:25)
[2020-11-12] MEDS: DEXMEDETOMIDINE 200 MCG in SODIUM CHLORIDE 0.9% 48 ML IV PRN ×2 (12:00→18:03)
[2020-11-13] MEDS: INSULIN LISPRO 100 UNIT/ML SUBCUT SCH ×5 (00:08→23:15)
[2020-11-13] MEDS: methylPREDNISolone SOD SUC 40 MG/1 ML VIAL IV SCH ×2 (00:17→12:25)
[2020-11-13] MEDS: PHENYLEPHRINE DRIP 40 MG/250 ML PREMIX IV PRN ×2 (00:19→14:50)
[2020-11-13] MEDS: ALBUTEROL/IPRATROPIUM 3 ML NEB RESP TX SCH ×4 (01:08→19:38)
[2020-11-13] MEDS: DEXMEDETOMIDINE 200 MCG in SODIUM CHLORIDE 0.9% 48 ML IV PRN ×2 (03:15)
[2020-11-13 04:08] LABS: Basophils % 0.2 % (0.0-0.8); Hematocrit 46.7 VOL% (42.0-52.0); Immature Granulocytes % 0.2 %; Immature Granulocytes Absolute 0.04 #; Lymphocytes # 1.7 10*3/uL (1.4-4.0); Lymphocytes % 10.6 % (21.2-54.2); Mean Corpuscular HGB Conc 32.1 GM/DL (32-36); Mean Corpuscular Volume 94.2 FL (87-102); Mean Platelet Volume 10.5 FL (9.6-12.0); Monocytes % 8.8 % (1.7-12.7); Neutrophils % 80.2 % (38.7-73.9); Platelet Count 307 T/CUMM (130-400); Red Blood Count 4.96 MC/CUMM (3.8-5.5); Red Cell Distribution Width 14.4 % (9.3-17.3)
[2020-11-13 04:17] LABS: ABG Base Excess 4.8 MMOL/L (-2.5-2.5); ABG HCO3 28.5 MMOL/L (20-26); ABG Oxygen Saturation 96.9 % (95-100); ABG PCO2 38.9 MM HG (35-48); ABG PH 7.483 (7.35-7.45); ABG PO2 91.4 MM HG (80-95); ABG TCO2 29.7 MMOL/L (23-27); Allen Test Positive; Pt O2 Delivery Device Ventilator
[2020-11-13 04:24] LABS: Calcium 8.4 MG/DL (8.5-10.1); Osmolality,Calculated 286.5 MOS/KG (273-304); Potassium 4.4 MMOL/L (3.5-5.1)
[2020-11-13] MEDS: ACETYLCYSTEINE 20% 800 MG/4 ML VIAL RESP TX SCH ×2 (07:55→19:38)
[2020-11-13] MEDS: BUDESONIDE 0.5 MG/2 ML NEB RESP TX SCH ×2 (07:55→19:38)
[2020-11-13] MEDS: ENOXAPARIN 40 MG/0.4 ML SYRINGE SUBCUT SCH (08:10)
[2020-11-13] MEDS: FUROSEMIDE 40 MG/4 ML VIAL IV SCH ×2 (08:10→16:50)
[2020-11-13] MEDS: FAMOTIDINE 20 MG/2 ML VIAL IV SCH ×2 (08:10→20:22)
[2020-11-13] MEDS: cefTRIAXone 1,000 MG in SYRINGE 1 EACH IV SCH (08:15)
[2020-11-13] MEDS: RIFAMPIN 300 MG CAPSULE PO SCH (09:24)
[2020-11-13] MEDS: AZITHROMYCIN INJ 250 MG in SODIUM CHLORIDE 0.9% 250 ML IV SCH (10:15)
[2020-11-13] MEDS ORDERED: ALBUMIN 25% 50 GM in PREMIX 1 EACH IV ONE (11:43)
[2020-11-13] MEDS ORDERED: HALOPERIDOL 5 MG/ML AMP IV PRN (11:43)
[2020-11-13] MEDS ORDERED: FUROSEMIDE 40 MG/4 ML VIAL IV SCH (13:30)
[2020-11-13] MEDS: DEXMEDETOMIDINE 400 MCG in SODIUM CHLORIDE 0.9% 96 ML IV PRN ×2 (14:30→22:16)
[2020-11-13] MEDS: HYDROmorphone 2 MG/1 ML VIAL IV PRN (16:50)
[2020-11-13] MEDS ORDERED: ONDANSETRON 4 MG/2 ML VIAL IV PRN (21:48)
[2020-11-13] MEDS ORDERED: ONDANSETRON 4 MG/2 ML VIAL ONE (21:49)
[2020-11-14] MEDS: FUROSEMIDE 40 MG/4 ML VIAL IV SCH ×3 (00:15→16:10)
[2020-11-14] MEDS: methylPREDNISolone SOD SUC 40 MG/1 ML VIAL IV SCH ×2 (00:18→12:40)
[2020-11-14] MEDS: HYDROmorphone 2 MG/1 ML VIAL IV PRN ×2 (00:54→16:10)
[2020-11-14] MEDS: ALBUTEROL/IPRATROPIUM 3 ML NEB RESP TX SCH ×4 (00:57→19:13)
[2020-11-14] MEDS: PHENYLEPHRINE DRIP 40 MG/250 ML PREMIX IV PRN (03:15)
[2020-11-14 04:34] LABS: ABG Base Excess 6.3 MMOL/L (-2.5-2.5); ABG HCO3 29.3 MMOL/L (20-26); ABG Oxygen Saturation 99.4 % (95-100); ABG PCO2 36.9 MM HG (35-48); ABG PH 7.518 (7.35-7.45); ABG PO2 211.4 MM HG (80-95); ABG TCO2 30.5 MMOL/L (23-27)
[2020-11-14 04:56] LABS: Basophils # 0.1 10*3/uL (0.0-0.2); Basophils % 0.4 % (0.0-0.8); Eosinophils % 0.1 % (0.00-10.9); Hemoglobin 15.1 GM/DL (14.0-18.0); Immature Granulocytes % 0.4 %; Immature Granulocytes Absolute 0.06 #; Lymphocytes # 2.6 10*3/uL (1.4-4.0); Lymphocytes % 18.9 % (21.2-54.2); Mean Corpuscular HGB Conc 32.1 GM/DL (32-36); Mean Corpuscular Volume 93.8 FL (87-102); Mean Platelet Volume 10.6 FL (9.6-12.0); Monocytes % 9.7 % (1.7-12.7); Neutrophils % 70.5 % (38.7-73.9); Platelet Count 314 T/CUMM (130-400); Red Blood Count 5.01 MC/CUMM (3.8-5.5); Red Cell Distribution Width 14.2 % (9.3-17.3); White Blood Count 13.6 T/CUMM (4-12)
[2020-11-14 05:23] LABS: Calcium 9.3 MG/DL (8.5-10.1); Osmolality,Calculated 280.8 MOS/KG (273-304); Potassium 4.3 MMOL/L (3.5-5.1)
[2020-11-14] MEDS: DEXMEDETOMIDINE 400 MCG in SODIUM CHLORIDE 0.9% 96 ML IV PRN (05:36)
[2020-11-14] MEDS: INSULIN LISPRO 100 UNIT/ML SUBCUT SCH (05:39)
[2020-11-14] MEDS: cefTRIAXone 1,000 MG in SYRINGE 1 EACH IV SCH (07:45)
[2020-11-14] MEDS: ENOXAPARIN 40 MG/0.4 ML SYRINGE SUBCUT SCH (07:45)
[2020-11-14] MEDS: FAMOTIDINE 20 MG/2 ML VIAL IV SCH ×2 (07:50→19:26)
[2020-11-14] MEDS: BUDESONIDE 0.5 MG/2 ML NEB RESP TX SCH ×2 (08:00→19:13)
[2020-11-14] MEDS: ACETYLCYSTEINE 20% 800 MG/4 ML VIAL RESP TX SCH ×3 (08:00→19:13)
[2020-11-14] MEDS ORDERED: NITROGLYCERIN SL 0.4 MG TABLET SL PRN (23:18)
[2020-11-14] MEDS ORDERED: MORPHINE 4 MG/1 ML VIAL IV PRN (23:18)
[2020-11-14] MEDS ORDERED: NITROGLYCERIN SL 0.4 MG TABLET SL ONE (23:22)
[2020-11-15] MEDS: methylPREDNISolone SOD SUC 40 MG/1 ML VIAL IV SCH (00:07)
[2020-11-15] MEDS: FUROSEMIDE 40 MG/4 ML VIAL IV SCH ×2 (00:09→08:33)
[2020-11-15] MEDS: ALBUTEROL/IPRATROPIUM 3 ML NEB RESP TX SCH ×4 (01:39→19:38)
[2020-11-15] MEDS: BUDESONIDE 0.5 MG/2 ML NEB RESP TX SCH ×2 (07:39→19:38)
[2020-11-15] MEDS: ACETYLCYSTEINE 20% 800 MG/4 ML VIAL RESP TX SCH ×2 (07:39→19:38)
[2020-11-15] MEDS: FAMOTIDINE 20 MG/2 ML VIAL IV SCH (08:33)
[2020-11-15] MEDS: ENOXAPARIN 40 MG/0.4 ML SYRINGE SUBCUT SCH (08:34)
[2020-11-15] MEDS ORDERED: INFLUENZA VIRUS VACCINE 0.5 ML SYRINGE IM ONE (09:00)
[2020-11-15] MEDS: predniSONE 20 MG TABLET PO SCH ×2 (10:25→21:52)
[2020-11-15] MEDS: PANTOPRAZOLE 40 MG TABLET PO SCH (10:25)
[2020-11-15] MEDS: FUROSEMIDE 40 MG TABLET PO SCH (16:22)
[2020-11-16] MEDS: ALBUTEROL/IPRATROPIUM 3 ML NEB RESP TX SCH ×4 (01:29→19:24)
[2020-11-16 06:02] LABS: Basophils % 0.2 % (0.0-0.8); Eosinophils # 0.5 10*3/uL (0.0-0.87); Eosinophils % 4.5 % (0.00-10.9); Hematocrit 48.3 VOL% (42.0-52.0); Hemoglobin 15.2 GM/DL (14.0-18.0); Immature Granulocytes % 0.3 %; Immature Granulocytes Absolute 0.03 #; Lymphocytes # 1.3 10*3/uL (1.4-4.0); Lymphocytes % 12.9 % (21.2-54.2); Mean Corpuscular HGB Conc 31.5 GM/DL (32-36); Mean Corpuscular Volume 95.3 FL (87-102); Mean Platelet Volume 10.5 FL (9.6-12.0); Monocytes % 7.5 % (1.7-12.7); Neutrophils % 74.6 % (38.7-73.9); Platelet Count 299 T/CUMM (130-400); Red Blood Count 5.07 MC/CUMM (3.8-5.5); Red Cell Distribution Width 13.4 % (9.3-17.3); White Blood Count 10.2 T/CUMM (4-12)
[2020-11-16 06:25] LABS: Calcium 8.9 MG/DL (8.5-10.1); Osmolality,Calculated 278.7 MOS/KG (273-304); Potassium 4.1 MMOL/L (3.5-5.1)
[2020-11-16] MEDS: BUDESONIDE 0.5 MG/2 ML NEB RESP TX SCH ×2 (07:46→19:24)
[2020-11-16] MEDS: ACETYLCYSTEINE 20% 800 MG/4 ML VIAL RESP TX SCH ×2 (07:55→19:24)
[2020-11-16] MEDS: PANTOPRAZOLE 40 MG TABLET PO SCH (10:05)
[2020-11-16] MEDS: predniSONE 20 MG TABLET PO SCH ×2 (10:05→20:31)
[2020-11-16] MEDS: FUROSEMIDE 40 MG TABLET PO SCH ×2 (10:05→15:13)
[2020-11-16] MEDS: ENOXAPARIN 40 MG/0.4 ML SYRINGE SUBCUT SCH (10:05)
[2020-11-16] MEDS: lisinopriL 2.5 MG TABLET PO SCH (12:15)
[2020-11-16] MEDS: METOPROLOL SUCCINATE XL 25 MG TABLET PO SCH (12:16)
[2020-11-17] MEDS: ALBUTEROL/IPRATROPIUM 3 ML NEB RESP TX SCH ×4 (00:19→19:36)
[2020-11-17 06:06] LABS: Calcium 9.1 MG/DL (8.5-10.1); Osmolality,Calculated 281.5 MOS/KG (273-304); Potassium 4.1 MMOL/L (3.5-5.1)
[2020-11-17] MEDS: BUDESONIDE 0.5 MG/2 ML NEB RESP TX SCH ×2 (08:15→19:36)
[2020-11-17] MEDS: ACETYLCYSTEINE 20% 800 MG/4 ML VIAL RESP TX SCH ×2 (08:15→19:36)
[2020-11-17] MEDS: METOPROLOL SUCCINATE XL 25 MG TABLET PO SCH ×2 (08:16→21:15)
[2020-11-17] MEDS: lisinopriL 2.5 MG TABLET PO SCH (08:16)
[2020-11-17] MEDS: FUROSEMIDE 40 MG TABLET PO SCH ×2 (08:16→15:41)
[2020-11-17] MEDS: PANTOPRAZOLE 40 MG TABLET PO SCH (08:16)
[2020-11-17] MEDS: ENOXAPARIN 40 MG/0.4 ML SYRINGE SUBCUT SCH (08:17)
[2020-11-17] MEDS: predniSONE 20 MG TABLET PO SCH ×2 (08:17→21:15)
[2020-11-18] MEDS: ALBUTEROL/IPRATROPIUM 3 ML NEB RESP TX SCH ×3 (00:35→13:30)
[2020-11-18] MEDS: BUDESONIDE 0.5 MG/2 ML NEB RESP TX SCH (07:33)
[2020-11-18] MEDS: ACETYLCYSTEINE 20% 800 MG/4 ML VIAL RESP TX SCH (07:33)
[2020-11-18] MEDS: predniSONE 20 MG TABLET PO SCH (10:16)
[2020-11-18] MEDS: ENOXAPARIN 40 MG/0.4 ML SYRINGE SUBCUT SCH (10:16)
[2020-11-18] MEDS: METOPROLOL SUCCINATE XL 25 MG TABLET PO SCH (10:16)
[2020-11-18] MEDS: PANTOPRAZOLE 40 MG TABLET PO SCH (10:16)
[2020-11-18] MEDS: lisinopriL 2.5 MG TABLET PO SCH (10:16)
[2020-11-18] MEDS: FUROSEMIDE 40 MG TABLET PO SCH (10:16)
[2020-11-18 12:09] VITALS: BP 107/67
== END 2020-11-18 15:50 | disposition home or self-care (01) | DRG 720 ==
LOC: N.ED 05:34 → N.EDINP 07:58 → SUATTDRO 07:58 → N.ICU 17:48 → N.TELEN 11-15 11:24
PROVIDERS: ADMIT Internal Medicine; ATTEND Internal Medicine

== ENCOUNTER 2021-01-17 17:52 | Inpatient (IN) ==
[2021-01-17] MEDS ORDERED: SODIUM CHLORIDE 0.9% 1,000 ML IV STA (18:33)
[2021-01-17] MEDS ORDERED: methylPREDNISolone SOD SUC 125 MG/2 ML VIAL IV STA (18:34)
[2021-01-17 18:42] LABS: Basophils # 0.1 10*3/uL (0.0-0.2); Basophils % 0.5 % (0.0-0.8); Eosinophils % 0.1 % (0.00-10.9); Hematocrit 45.8 VOL% (42.0-52.0); Hemoglobin 14.7 GM/DL (14.0-18.0); Immature Granulocytes % 0.3 %; Immature Granulocytes Absolute 0.03 #; Lymphocytes # 1.5 10*3/uL (1.4-4.0); Lymphocytes % 15.8 % (21.2-54.2); Mean Corpuscular HGB Conc 32.1 GM/DL (32-36); Mean Corpuscular Volume 93.9 FL (87-102); Mean Platelet Volume 11.7 FL (9.6-12.0); Monocytes % 9.9 % (1.7-12.7); Neutrophils % 73.4 % (38.7-73.9); Platelet Count 219 T/CUMM (130-400); Red Blood Count 4.88 MC/CUMM (3.8-5.5); Red Cell Distribution Width 13.6 % (9.3-17.3); White Blood Count 9.5 T/CUMM (4-12)
[2021-01-17 18:47] LABS: ABG HCO3 27.1 MMOL/L (20-26); ABG Oxygen Saturation 97.3 % (95-100); ABG PCO2 53.2 MM HG (35-48); ABG PH 7.359 (7.35-7.45); ABG PO2 97.9 MM HG (80-95); ABG TCO2 25.9 MMOL/L (23-27)
[2021-01-17] MEDS ORDERED: SODIUM CHLORIDE 0.9% 500 ML IV STA (18:49)
[2021-01-17 18:52] LABS: INR 1.2; PT Patient Result 13.5 SECS (10.5-12.0)
[2021-01-17 18:58] LABS: Alanine Aminotransferase 369 U/L (16-61); Albumin 3.3 G/DL (3.4-5.0); Alkaline Phosphatase 157 U/L (45-117); Aspartate Amino Transferase 446 U/L (0-37); Blood Urea Nitrogen 23 MG/DL (7-18); Calcium 8.7 MG/DL (8.5-10.1); Carbon Dioxide 31 MMOL/L (21-32); Estimated Glom Filtration Rate 69 ML/MIN; Glucose 165 MG/DL (74-106); Osmolality,Calculated 282.7 MOS/KG (273-304); Potassium 4.9 MMOL/L (3.5-5.1); Sodium 138 MMOL/L (136-145); Total Protein 6.4 G/DL (6.4-8.2)
[2021-01-17] MEDS ORDERED: ALBUTEROL NEB SOLN 5 MG/ML 20 ML/BOTTLE CONT NEB SCH (19:00)
[2021-01-17] MEDS ORDERED: cefTRIAXone 1,000 MG in SODIUM CHLORIDE 0.9% 100 ML IV STA (19:03)
[2021-01-17] MEDS ORDERED: ENOXAPARIN 80 MG/0.8 ML SYRINGE SUBCUT ONE (19:15)
[2021-01-17] MEDS ORDERED: NITROGLYCERIN 2% OINT 1 INCH/GM PACK TOP ONE (19:15)
[2021-01-17] MEDS ORDERED: propofoL 200 MG/20 ML VIAL IV ONE (19:26)
[2021-01-17 19:55] LABS: ABG Base Excess 1.2 MMOL/L (-2.5-2.5); ABG HCO3 25.5 MMOL/L (20-26); ABG Oxygen Saturation 99.5 % (95-100); ABG PCO2 49.9 MM HG (35-48); ABG PH 7.352 (7.35-7.45); ABG TCO2 24.1 MMOL/L (23-27); Allen Test Positive; Pt O2 Delivery Device Ventilator
[2021-01-17 20:03] LABS: Bacteria,Urine Occasional /HPF (Few); Bilirubin,Urine Negative (Negative); Blood, Urine Negative (Negative); Glucose,Urine (UA) Negative (Negative); Hyaline Casts,Urine 68 /LPF (0-3); Ketones,Urine Negative (Negative); Mucus,Urine Occasional /LPF (Occasional); Nitrite,Urine Negative (Negative); Protein,Urine 30 MG/DL; RBC,Urine 1 /HPF (0-4); Squamous Epithelial Cell,Urine Occasional /HPF (0-10); Urine Appearance CLEAR (Clear); Urine Color Amber (Yellow); Urine Specific Gravity 1.017 (1.001-1.035)
[2021-01-17] MEDS ORDERED: MAGNESIUM SULF RIDER 2 GM/50 ML PREMIX IV PRN (21:23)
[2021-01-17] MEDS ORDERED: MAGNESIUM SULF RIDER 4 GM/100 ML PREMIX IV PRN (21:23)
[2021-01-17] MEDS ORDERED: DEXTROSE 50% 25 GM/50 ML VIAL IV PRN (21:23)
[2021-01-17] MEDS ORDERED: GLUCAGON 1 MG VIAL IM PRN (21:23)
[2021-01-17] MEDS ORDERED: ONDANSETRON 4 MG/2 ML VIAL IV PRN (21:23)
[2021-01-17] MEDS ORDERED: ETOMIDATE 20 MG/10 ML VIAL IV ONE (22:06)
[2021-01-17] MEDS ORDERED: ROCURONIUM 100 MG/10 ML VIAL IV ONE (22:07)
[2021-01-17] MEDS: MIDAZOLAM 100 MG in SODIUM CHLORIDE 0.9% 80 ML IV PRN (22:20)
[2021-01-17] MEDS ORDERED: ALBUTEROL/IPRATROPIUM 3 ML NEB RESP TX ONE (23:23)
[2021-01-17 23:31] LABS: Barbiturates Screen,Urine Negative (Negative); Benzodiazepines Screen,Urine Negative (Negative); Cannabinoid Screen,Urine Positive (Negative); Opiate Screen,Urine Negative (Negative); Phencyclidine Screen,Urine Negative (Negative)
[2021-01-17] MEDS: cefTRIAXone 1,000 MG in SODIUM CHLORIDE 0.9% 100 ML IV SCH (23:38)
[2021-01-17] MEDS: ENOXAPARIN 40 MG/0.4 ML SYRINGE SUBCUT SCH (23:38)
[2021-01-18] MEDS: methylPREDNISolone SOD SUC 40 MG/1 ML VIAL IV SCH ×3 (00:42→16:57)
[2021-01-18] MEDS: AZITHROMYCIN INJ 500 MG in SODIUM CHLORIDE 0.9% 250 ML IV SCH (00:42)
[2021-01-18] MEDS: ALBUTEROL/IPRATROPIUM 3 ML NEB RESP TX SCH ×4 (01:10→19:28)
[2021-01-18 03:35] LABS: Basophils % 0.1 % (0.0-0.8); Hematocrit 46.1 VOL% (42.0-52.0); Hemoglobin 13.9 GM/DL (14.0-18.0); Immature Granulocytes % 0.3 %; Immature Granulocytes Absolute 0.02 #; Lymphocytes # 0.4 10*3/uL (1.4-4.0); Lymphocytes % 6.2 % (21.2-54.2); Mean Corpuscular HGB Conc 30.2 GM/DL (32-36); Mean Corpuscular Volume 97.7 FL (87-102); Mean Platelet Volume 11.6 FL (9.6-12.0); Monocytes % 1.5 % (1.7-12.7); Neutrophils % 91.9 % (38.7-73.9); Platelet Count 199 T/CUMM (130-400); Red Blood Count 4.72 MC/CUMM (3.8-5.5); Red Cell Distribution Width 13.6 % (9.3-17.3); White Blood Count 7.1 T/CUMM (4-12)
[2021-01-18 03:50] LABS: Osmolality,Calculated 286.3 MOS/KG (273-304); Potassium 4.3 MMOL/L (3.5-5.1)
[2021-01-18 03:58] LABS: Lymphocytes 2 % (20-55); Segmented Neutrophils 96 % (50-85); Total Cells Counted 100
[2021-01-18 03:59] LABS: Hypochromasia 1+; Microcytosis 1+
[2021-01-18 04:01] LABS: Platelet Estimate Adequate
[2021-01-18 04:21] LABS: ABG Base Excess 3.1 MMOL/L (-2.5-2.5); ABG HCO3 27.2 MMOL/L (20-26); ABG Oxygen Saturation 98.6 % (95-100); ABG PCO2 52.5 MM HG (35-48); ABG PH 7.363 (7.35-7.45); Allen Test Positive; Pt O2 Delivery Device Ventilator
[2021-01-18] MEDS: PANTOPRAZOLE 40 MG VIAL IV SCH (09:04)
[2021-01-18] MEDS: FUROSEMIDE 40 MG/4 ML VIAL IV SCH ×2 (09:06→16:57)
[2021-01-18] MEDS: ENOXAPARIN 40 MG/0.4 ML SYRINGE SUBCUT SCH (22:10)
[2021-01-18] MEDS: cefTRIAXone 1,000 MG in SODIUM CHLORIDE 0.9% 100 ML IV SCH (22:10)
[2021-01-19] MEDS: ALBUTEROL/IPRATROPIUM 3 ML NEB RESP TX SCH ×4 (01:15→19:36)
[2021-01-19] MEDS: AZITHROMYCIN INJ 500 MG in SODIUM CHLORIDE 0.9% 250 ML IV SCH (01:40)
[2021-01-19] MEDS: methylPREDNISolone SOD SUC 40 MG/1 ML VIAL IV SCH ×3 (01:41→17:28)
[2021-01-19] MEDS ORDERED: PHENYLEPHRINE DRIP 40 MG/250 ML PREMIX IV ONE (03:04)
[2021-01-19] MEDS: PHENYLEPHRINE DRIP 40 MG/250 ML PREMIX IV PRN (03:06)
[2021-01-19 03:13] LABS: ABG Base Excess -3.5 MMOL/L (-2.5-2.5); ABG HCO3 21.6 MMOL/L (20-26); ABG Oxygen Saturation 99.6 % (95-100); ABG PCO2 52.8 MM HG (35-48); ABG PH 7.274 (7.35-7.45); ABG TCO2 21.2 MMOL/L (23-27); Allen Test Negative; Pt O2 Delivery Device Ventilator
[2021-01-19 03:58] LABS: Basophils % 0.1 % (0.0-0.8); Hematocrit 45.5 VOL% (42.0-52.0); Hemoglobin 14.1 GM/DL (14.0-18.0); Immature Granulocytes % 0.5 %; Immature Granulocytes Absolute 0.07 #; Lymphocytes # 0.8 10*3/uL (1.4-4.0); Lymphocytes % 6.5 % (21.2-54.2); Monocytes % 3.8 % (1.7-12.7); NRBC # 0.03 10*3/uL; Neutrophils % 89.1 % (38.7-73.9); Platelet Count 234 T/CUMM (130-400); Red Blood Count 4.79 MC/CUMM (3.8-5.5); Red Cell Distribution Width 13.9 % (9.3-17.3); White Blood Count 12.8 T/CUMM (4-12)
[2021-01-19 05:09] LABS: Calcium 8.2 MG/DL (8.5-10.1); Osmolality,Calculated 293.7 MOS/KG (273-304); Potassium 4.7 MMOL/L (3.5-5.1)
[2021-01-19] MEDS ORDERED: DEXTROSE 50% 25 GM/50 ML VIAL IV PRN (05:17)
[2021-01-19] MEDS ORDERED: GLUCAGON 1 MG VIAL IM PRN (05:17)
[2021-01-19] MEDS: INSULIN REGULAR 100 UNIT/ML SUBCUT SCH ×3 (05:34→18:34)
[2021-01-19 07:47] LABS: Albumin 2.6 G/DL (3.4-5.0); Bilirubin,Total 0.9 MG/DL (0.2-1.0); Calcium 8.4 MG/DL (8.5-10.1); Osmolality,Calculated 291.5 MOS/KG (273-304); Potassium 4.4 MMOL/L (3.5-5.1); Total Protein 5.7 G/DL (6.4-8.2)
[2021-01-19] MEDS: FUROSEMIDE 40 MG/4 ML VIAL IV SCH ×2 (10:09→17:30)
[2021-01-19] MEDS: PANTOPRAZOLE 40 MG VIAL IV SCH (10:12)
[2021-01-19] MEDS: ENOXAPARIN 40 MG/0.4 ML SYRINGE SUBCUT SCH (22:32)
[2021-01-19] MEDS: cefTRIAXone 1,000 MG in SODIUM CHLORIDE 0.9% 100 ML IV SCH (22:32)
[2021-01-20] MEDS: INSULIN REGULAR 100 UNIT/ML SUBCUT SCH ×4 (00:29→18:19)
[2021-01-20] MEDS: methylPREDNISolone SOD SUC 40 MG/1 ML VIAL IV SCH ×3 (00:36→16:40)
[2021-01-20] MEDS: AZITHROMYCIN INJ 500 MG in SODIUM CHLORIDE 0.9% 250 ML IV SCH (00:38)
[2021-01-20] MEDS: ALBUTEROL/IPRATROPIUM 3 ML NEB RESP TX SCH ×4 (01:45→19:32)
[2021-01-20] MEDS: PHENYLEPHRINE DRIP 40 MG/250 ML PREMIX IV PRN (01:51)
[2021-01-20 03:49] LABS: ABG Base Excess 3.3 MMOL/L (-2.5-2.5); ABG HCO3 28.7 MMOL/L (20-26); ABG Oxygen Saturation 98.2 % (95-100); ABG PCO2 46.4 MM HG (35-48); ABG PH 7.409 (7.35-7.45); ABG TCO2 30.1 MMOL/L (23-27)
[2021-01-20 04:52] LABS: Basophils % 0.1 % (0.0-0.8); Hematocrit 41.1 VOL% (42.0-52.0); Hemoglobin 13.5 GM/DL (14.0-18.0); Immature Granulocytes % 0.6 %; Lymphocytes # 0.3 10*3/uL (1.4-4.0); Lymphocytes % 1.7 % (21.2-54.2); Mean Corpuscular HGB Conc 32.8 GM/DL (32-36); Mean Corpuscular Volume 91.5 FL (87-102); Mean Platelet Volume 12.1 FL (9.6-12.0); Monocytes % 4.8 % (1.7-12.7); NRBC # 0.03 10*3/uL; Neutrophils % 92.8 % (38.7-73.9); Platelet Count 214 T/CUMM (130-400); Red Blood Count 4.49 MC/CUMM (3.8-5.5); Red Cell Distribution Width 13.9 % (9.3-17.3); White Blood Count 16.3 T/CUMM (4-12)
[2021-01-20 05:17] LABS: Band Neutrophils 3 % (0-10); Hypochromasia 1+; Lymphocytes 3 % (20-55); Segmented Neutrophils 91 % (50-85); Total Cells Counted 100
[2021-01-20 05:18] LABS: Microcytosis 1+; Ovalocytes Slight; Platelet Estimate Normal
[2021-01-20 05:20] LABS: Albumin 2.4 G/DL (3.4-5.0); Bilirubin,Total 0.5 MG/DL (0.2-1.0); Calcium 7.9 MG/DL (8.5-10.1); Osmolality,Calculated 302.3 MOS/KG (273-304); Potassium 4.6 MMOL/L (3.5-5.1); Total Protein 5.2 G/DL (6.4-8.2)
[2021-01-20] MEDS: PANTOPRAZOLE 40 MG VIAL IV SCH (08:07)
[2021-01-20] MEDS: FUROSEMIDE 40 MG/4 ML VIAL IV SCH ×2 (08:07→16:40)
[2021-01-20] MEDS: ENOXAPARIN 40 MG/0.4 ML SYRINGE SUBCUT SCH (21:20)
[2021-01-20] MEDS: cefTRIAXone 1,000 MG in SODIUM CHLORIDE 0.9% 100 ML IV SCH (22:07)
[2021-01-21] MEDS: AZITHROMYCIN INJ 500 MG in SODIUM CHLORIDE 0.9% 250 ML IV SCH (00:15)
[2021-01-21] MEDS: methylPREDNISolone SOD SUC 40 MG/1 ML VIAL IV SCH ×3 (00:15→17:13)
[2021-01-21] MEDS: INSULIN REGULAR 100 UNIT/ML SUBCUT SCH ×4 (00:15→17:54)
[2021-01-21] MEDS ORDERED: NOREPINEPHRINE 4 MG/4 ML VIAL IV ONE (01:08)
[2021-01-21] MEDS: NOREPINEPHRINE 8 MG in SODIUM CHLORIDE 0.9% 242 ML IV PRN ×3 (01:10→19:32)
[2021-01-21] MEDS ORDERED: EPINEPHrine 1 MG/ML VIAL ONE (01:10)
[2021-01-21] MEDS: ALBUTEROL/IPRATROPIUM 3 ML NEB RESP TX SCH ×4 (01:20→19:07)
[2021-01-21] MEDS ORDERED: FAMOTIDINE 20 MG/2 ML VIAL IV ONE (01:35)
[2021-01-21] MEDS ORDERED: diphenhydrAMINE 50 MG/1 ML VIAL IV ONE (01:36)
[2021-01-21] MEDS ORDERED: EPINEPHrine 1 MG/10 ML SYRINGE IV ONE (02:10)
[2021-01-21] MEDS: MIDAZOLAM 100 MG in SODIUM CHLORIDE 0.9% 80 ML IV PRN ×2 (03:09→17:51)
[2021-01-21] MEDS ORDERED: ATROPINE 1 MG/10 ML SYRINGE ONE (03:11)
[2021-01-21 03:23] LABS: ABG Base Excess 1.5 MMOL/L (-2.5-2.5); ABG HCO3 25.8 MMOL/L (20-26); ABG PCO2 48.4 MM HG (35-48); ABG PH 7.367 (7.35-7.45); ABG TCO2 23.6 MMOL/L (23-27)
[2021-01-21 03:26] LABS: Basophils % 0.1 % (0.0-0.8); Hematocrit 47.1 VOL% (42.0-52.0); Hemoglobin 14.9 GM/DL (14.0-18.0); Immature Granulocytes % 0.5 %; Immature Granulocytes Absolute 0.08 #; Lymphocytes # 0.8 10*3/uL (1.4-4.0); Lymphocytes % 4.4 % (21.2-54.2); Mean Corpuscular HGB Conc 31.6 GM/DL (32-36); Mean Corpuscular Volume 92.9 FL (87-102); Mean Platelet Volume 11.6 FL (9.6-12.0); Monocytes % 4.8 % (1.7-12.7); NRBC # 0.03 10*3/uL; Neutrophils % 90.2 % (38.7-73.9); Platelet Count 240 T/CUMM (130-400); Red Blood Count 5.07 MC/CUMM (3.8-5.5); Red Cell Distribution Width 14.3 % (9.3-17.3); White Blood Count 17.4 T/CUMM (4-12)
[2021-01-21 03:49] LABS: Alanine Aminotransferase 442 U/L (16-61); Albumin 2.8 G/DL (3.4-5.0); Alkaline Phosphatase 286 U/L (45-117); Aspartate Amino Transferase 269 U/L (0-37); Blood Urea Nitrogen 53 MG/DL (7-18); Calcium 7.9 MG/DL (8.5-10.1); Carbon Dioxide 28 MMOL/L (21-32); Estimated Glom Filtration Rate 50 ML/MIN; Glucose 252 MG/DL (74-106); Osmolality,Calculated 301.4 MOS/KG (273-304); Potassium 5.2 MMOL/L (3.5-5.1); Sodium 140 MMOL/L (136-145); Total Protein 6.1 G/DL (6.4-8.2)
[2021-01-21] MEDS ORDERED: ACETAMINOPHEN 325 MG TABLET PO ONE (03:58)
[2021-01-21 04:02] LABS: Lymphocytes 4 % (20-55); Nucleated Red Blood Cells 1 (0-5); Platelet Estimate Normal; Segmented Neutrophils 91 % (50-85); Total Cells Counted 100
[2021-01-21 04:03] LABS: Polychromasia Slight
[2021-01-21 04:05] LABS: Anisocytosis Slight; Macrocytosis Slight
[2021-01-21] MEDS: PHENYLEPHRINE DRIP 40 MG/250 ML PREMIX IV PRN ×2 (05:20→07:22)
[2021-01-21 06:06] LABS: INR 1.1; PT Patient Result 12.2 SECS (10.5-12.0); Partial Thromboplastin Time 23.4 SECS (23.9-33.8)
[2021-01-21] MEDS ORDERED: SODIUM CHLORIDE 0.9% 500 ML IV ONE (06:26)
[2021-01-21] MEDS ORDERED: ALBUMIN 25% 25 GM/100 ML VIAL IV ONE (06:26)
[2021-01-21] MEDS: SODIUM CHLORIDE 0.9% 1,000 ML IV ONE ×2 (06:39→06:40)
[2021-01-21 06:52] LABS: Calcium 8.1 MG/DL (8.5-10.1); Osmolality,Calculated 299.5 MOS/KG (273-304); Potassium 5.2 MMOL/L (3.5-5.1)
[2021-01-21] MEDS: PANTOPRAZOLE 40 MG VIAL IV SCH (08:19)
[2021-01-21] MEDS: FUROSEMIDE 40 MG/4 ML VIAL IV SCH ×2 (08:19→17:13)
[2021-01-21] MEDS: CEFEPIME 1,000 MG in SODIUM CHLORIDE 0.9% 100 ML IV SCH ×2 (10:06→17:13)
[2021-01-21] MEDS: VANCOMYCIN INJ 1,500 MG in SODIUM CHLORIDE 0.9% 500 ML IV SCH (10:19)
[2021-01-21] MEDS: ENOXAPARIN 40 MG/0.4 ML SYRINGE SUBCUT SCH (21:45)
[2021-01-22] MEDS: INSULIN REGULAR 100 UNIT/ML SUBCUT SCH ×5 (00:32→23:17)
[2021-01-22] MEDS: methylPREDNISolone SOD SUC 40 MG/1 ML VIAL IV SCH ×3 (00:33→17:56)
[2021-01-22] MEDS: CEFEPIME 1,000 MG in SODIUM CHLORIDE 0.9% 100 ML IV SCH ×4 (00:33→21:18)
[2021-01-22] MEDS: ALBUTEROL/IPRATROPIUM 3 ML NEB RESP TX SCH ×4 (00:52→20:30)
[2021-01-22 04:34] LABS: ABG Base Excess 9.3 MMOL/L (-2.5-2.5); ABG Oxygen Saturation 98.3 % (95-100); ABG PCO2 50.2 MM HG (35-48); ABG PH 7.451 (7.35-7.45); ABG TCO2 30.5 MMOL/L (23-27)
[2021-01-22 04:40] LABS: Basophils % 0.1 % (0.0-0.8); Hematocrit 39.2 VOL% (42.0-52.0); Immature Granulocytes % 0.3 %; Immature Granulocytes Absolute 0.03 #; Lymphocytes # 0.4 10*3/uL (1.4-4.0); Lymphocytes % 3.7 % (21.2-54.2); Mean Corpuscular HGB Conc 32.4 GM/DL (32-36); Mean Platelet Volume 11.6 FL (9.6-12.0); Monocytes % 5.7 % (1.7-12.7); NRBC # 0.02 10*3/uL; Neutrophils % 90.2 % (38.7-73.9); Red Blood Count 4.26 MC/CUMM (3.8-5.5); Red Cell Distribution Width 14.3 % (9.3-17.3)
[2021-01-22 04:41] LABS: White Blood Count 11.2 T/CUMM (4-12)
[2021-01-22] MEDS: VANCOMYCIN INJ 1,500 MG in SODIUM CHLORIDE 0.9% 500 ML IV SCH ×2 (04:41→17:33)
[2021-01-22 04:42] LABS: Hemoglobin 12.7 GM/DL (14.0-18.0); Platelet Count 186 T/CUMM (130-400)
[2021-01-22 04:55] LABS: Albumin 2.7 G/DL (3.4-5.0); Bilirubin,Total 0.7 MG/DL (0.2-1.0); Calcium 8.6 MG/DL (8.5-10.1); Osmolality,Calculated 303.8 MOS/KG (273-304); Potassium 4.7 MMOL/L (3.5-5.1); Total Protein 5.4 G/DL (6.4-8.2)
[2021-01-22 05:47] LABS: Anisocytosis 1+; Band Neutrophils 5 % (0-10); Hypochromasia Slight; Lymphocytes 6 % (20-55); Macrocytosis 1+; Nucleated Red Blood Cells 1 (0-5); Platelet Estimate Normal; Polychromasia Slight; Segmented Neutrophils 85 % (50-85); Total Cells Counted 100
[2021-01-22] MEDS: MIDAZOLAM 100 MG in SODIUM CHLORIDE 0.9% 80 ML IV PRN ×2 (07:11→22:32)
[2021-01-22] MEDS: FUROSEMIDE 40 MG/4 ML VIAL IV SCH ×2 (08:58→17:33)
[2021-01-22] MEDS: PANTOPRAZOLE 40 MG VIAL IV SCH (09:08)
[2021-01-22] MEDS: ENOXAPARIN 40 MG/0.4 ML SYRINGE SUBCUT SCH (21:19)
[2021-01-23] MEDS: methylPREDNISolone SOD SUC 40 MG/1 ML VIAL IV SCH ×3 (00:03→17:21)
[2021-01-23] MEDS: ALBUTEROL/IPRATROPIUM 3 ML NEB RESP TX SCH ×4 (01:53→20:01)
[2021-01-23] MEDS: CEFEPIME 1,000 MG in SODIUM CHLORIDE 0.9% 100 ML IV SCH ×3 (02:05→14:19)
[2021-01-23] MEDS: VANCOMYCIN INJ 1,500 MG in SODIUM CHLORIDE 0.9% 500 ML IV SCH ×2 (03:20→17:11)
[2021-01-23 04:09] LABS: ABG Base Excess 9.3 MMOL/L (-2.5-2.5); ABG HCO3 34.2 MMOL/L (20-26); ABG Oxygen Saturation 98.3 % (95-100); ABG PH 7.471 (7.35-7.45); ABG PO2 123.6 MM HG (80-95); ABG TCO2 35.7 MMOL/L (23-27)
[2021-01-23 04:27] LABS: Basophils % 0.1 % (0.0-0.8); Hematocrit 38.7 VOL% (42.0-52.0); Hemoglobin 12.2 GM/DL (14.0-18.0); Immature Granulocytes % 0.5 %; Immature Granulocytes Absolute 0.05 #; Lymphocytes # 0.5 10*3/uL (1.4-4.0); Lymphocytes % 4.2 % (21.2-54.2); Mean Corpuscular HGB Conc 31.5 GM/DL (32-36); Mean Corpuscular Volume 93.5 FL (87-102); Mean Platelet Volume 11.7 FL (9.6-12.0); Monocytes % 6.4 % (1.7-12.7); Neutrophils % 88.8 % (38.7-73.9); Platelet Count 178 T/CUMM (130-400); Red Blood Count 4.14 MC/CUMM (3.8-5.5); Red Cell Distribution Width 14.2 % (9.3-17.3)
[2021-01-23 04:51] LABS: Lymphocytes 3 % (20-55); Segmented Neutrophils 95 % (50-85); Total Cells Counted 100
[2021-01-23 04:52] LABS: Hypochromasia Slight; Platelet Estimate Adequate
[2021-01-23 05:07] LABS: Albumin 2.6 G/DL (3.4-5.0); Bilirubin,Total 1.1 MG/DL (0.2-1.0); Calcium 8.5 MG/DL (8.5-10.1); Osmolality,Calculated 303.7 MOS/KG (273-304); Potassium 4.5 MMOL/L (3.5-5.1); Total Protein 5.3 G/DL (6.4-8.2)
[2021-01-23] MEDS: INSULIN REGULAR 100 UNIT/ML SUBCUT SCH ×3 (06:21→18:10)
[2021-01-23] MEDS: FUROSEMIDE 40 MG/4 ML VIAL IV SCH ×2 (08:39→16:15)
[2021-01-23] MEDS: PANTOPRAZOLE 40 MG VIAL IV SCH (08:45)
[2021-01-23] MEDS: MIDAZOLAM 100 MG in SODIUM CHLORIDE 0.9% 80 ML IV PRN (13:52)
[2021-01-23] MEDS: ENOXAPARIN 40 MG/0.4 ML SYRINGE SUBCUT SCH (20:35)
[2021-01-23] MEDS ORDERED: VANCOMYCIN INJ 1,500 MG in SODIUM CHLORIDE 0.9% 500 ML IV SCH (22:00)
[2021-01-24] MEDS: ALBUTEROL/IPRATROPIUM 3 ML NEB RESP TX SCH ×5 (00:07→19:31)
[2021-01-24] MEDS: INSULIN REGULAR 100 UNIT/ML SUBCUT SCH ×5 (00:07→23:45)
[2021-01-24] MEDS: methylPREDNISolone SOD SUC 40 MG/1 ML VIAL IV SCH ×3 (00:08→21:04)
[2021-01-24 03:57] LABS: ABG Base Excess 10.5 MMOL/L (-2.5-2.5); ABG HCO3 34.3 MMOL/L (20-26); ABG Oxygen Saturation 98.8 % (95-100); ABG PCO2 46.7 MM HG (35-48); ABG PH 7.489 (7.35-7.45); ABG TCO2 31.1 MMOL/L (23-27)
[2021-01-24 03:58] LABS: Hematocrit 38.6 VOL% (42.0-52.0); Hemoglobin 12.4 GM/DL (14.0-18.0); Immature Granulocytes % 0.8 %; Immature Granulocytes Absolute 0.09 #; Lymphocytes # 0.4 10*3/uL (1.4-4.0); Lymphocytes % 3.8 % (21.2-54.2); Mean Corpuscular HGB Conc 32.1 GM/DL (32-36); Mean Corpuscular Volume 92.1 FL (87-102); Mean Platelet Volume 11.3 FL (9.6-12.0); Monocytes % 4.7 % (1.7-12.7); Neutrophils % 90.7 % (38.7-73.9); Platelet Count 171 T/CUMM (130-400); Red Blood Count 4.19 MC/CUMM (3.8-5.5); White Blood Count 11.4 T/CUMM (4-12)
[2021-01-24] MEDS: MIDAZOLAM 100 MG in SODIUM CHLORIDE 0.9% 80 ML IV PRN (04:05)
[2021-01-24 04:13] LABS: Albumin 2.3 G/DL (3.4-5.0); Bilirubin,Total 0.5 MG/DL (0.2-1.0); Osmolality,Calculated 300.8 MOS/KG (273-304); Potassium 4.4 MMOL/L (3.5-5.1)
[2021-01-24 04:20] LABS: Hypochromasia Slight; Lymphocytes 2 % (20-55); Nucleated Red Blood Cells 1 (0-5); Platelet Estimate Adequate; Segmented Neutrophils 92 % (50-85); Total Cells Counted 100
[2021-01-24] MEDS: FUROSEMIDE 40 MG/4 ML VIAL IV SCH ×2 (08:09→16:17)
[2021-01-24] MEDS: PANTOPRAZOLE 40 MG VIAL IV SCH (09:41)
[2021-01-24] MEDS: ENOXAPARIN 40 MG/0.4 ML SYRINGE SUBCUT SCH (21:04)
[2021-01-25] MEDS: ALBUTEROL/IPRATROPIUM 3 ML NEB RESP TX SCH ×4 (01:40→19:41)
[2021-01-25 03:49] LABS: ABG Base Excess 10.1 MMOL/L (-2.5-2.5); ABG HCO3 33.8 MMOL/L (20-26); ABG Oxygen Saturation 93.7 % (95-100); ABG PCO2 55.8 MM HG (35-48); ABG PH 7.428 (7.35-7.45); ABG PO2 71.1 MM HG (80-95); ABG TCO2 32.1 MMOL/L (23-27)
[2021-01-25 03:52] LABS: Basophils % 0.1 % (0.0-0.8); Hematocrit 42.5 VOL% (42.0-52.0); Hemoglobin 13.1 GM/DL (14.0-18.0); Immature Granulocytes % 0.6 %; Immature Granulocytes Absolute 0.08 #; Lymphocytes # 0.5 10*3/uL (1.4-4.0); Lymphocytes % 4.1 % (21.2-54.2); Mean Corpuscular HGB Conc 30.8 GM/DL (32-36); Mean Corpuscular Volume 94.2 FL (87-102); Mean Platelet Volume 11.1 FL (9.6-12.0); Monocytes % 3.9 % (1.7-12.7); Neutrophils % 91.3 % (38.7-73.9); Platelet Count 184 T/CUMM (130-400); Red Blood Count 4.51 MC/CUMM (3.8-5.5); Red Cell Distribution Width 13.8 % (9.3-17.3)
[2021-01-25 04:12] LABS: Band Neutrophils 1 % (0-10); Lymphocytes 3 % (20-55); Platelet Estimate Normal; Segmented Neutrophils 95 % (50-85); Total Cells Counted 100
[2021-01-25 05:04] LABS: Calcium 8.6 MG/DL (8.5-10.1)
[2021-01-25 05:11] LABS: Osmolality,Calculated 289.4 MOS/KG (273-304)
[2021-01-25] MEDS: INSULIN REGULAR 100 UNIT/ML SUBCUT SCH ×4 (05:56→23:44)
[2021-01-25 06:50] LABS: Albumin 2.4 G/DL (3.4-5.0); Bilirubin,Total 0.6 MG/DL (0.2-1.0); Calcium 8.7 MG/DL (8.5-10.1); Osmolality,Calculated 291.3 MOS/KG (273-304); Potassium 4.7 MMOL/L (3.5-5.1); Total Protein 5.4 G/DL (6.4-8.2)
[2021-01-25] MEDS ORDERED: AMIODARONE 150 MG/3 ML VIAL ONE (08:53)
[2021-01-25] MEDS: FUROSEMIDE 40 MG/4 ML VIAL IV SCH ×2 (09:33→16:23)
[2021-01-25] MEDS: methylPREDNISolone SOD SUC 40 MG/1 ML VIAL IV SCH ×2 (09:34→21:56)
[2021-01-25] MEDS: PANTOPRAZOLE 40 MG VIAL IV SCH (09:35)
[2021-01-25] MEDS: CIPROFLOXACIN 500 MG TABLET PO SCH ×2 (11:07→21:56)
[2021-01-25] MEDS: ENOXAPARIN 40 MG/0.4 ML SYRINGE SUBCUT SCH (21:56)
[2021-01-26] MEDS: ALBUTEROL/IPRATROPIUM 3 ML NEB RESP TX SCH ×4 (00:14→20:44)
[2021-01-26 05:48] LABS: Calcium 8.5 MG/DL (8.5-10.1); Osmolality,Calculated 288.5 MOS/KG (273-304); Potassium 4.3 MMOL/L (3.5-5.1)
[2021-01-26] MEDS: INSULIN REGULAR 100 UNIT/ML SUBCUT SCH ×3 (06:14→18:12)
[2021-01-26] MEDS: methylPREDNISolone SOD SUC 40 MG/1 ML VIAL IV SCH ×2 (10:04→21:12)
[2021-01-26] MEDS: CIPROFLOXACIN 500 MG TABLET PO SCH ×2 (10:06→21:10)
[2021-01-26] MEDS: FUROSEMIDE 40 MG/4 ML VIAL IV SCH ×2 (10:08→16:40)
[2021-01-26 14:09] LABS: Hepatitis B Core IgM Quant < 0.05 Index; Hepatitis B Surface Ag Quant < 0.10 Index; Hepatitis B Surface Ag Result Non-Reactive (NonReactive); Hepatitis C Virus Ab Quant 0.05 Index; Hepatitis C Virus Ab Result Non-Reactive (NonReactive)
[2021-01-26] MEDS: METOPROLOL TARTRATE 25 MG TABLET PO SCH ×2 (16:39→21:11)
[2021-01-26] MEDS: ENOXAPARIN 40 MG/0.4 ML SYRINGE SUBCUT SCH (21:12)
[2021-01-27] MEDS: INSULIN REGULAR 100 UNIT/ML SUBCUT SCH ×3 (00:37→13:42)
[2021-01-27] MEDS: ALBUTEROL/IPRATROPIUM 3 ML NEB RESP TX SCH ×3 (01:37→12:58)
[2021-01-27 05:17] LABS: Basophils % 0.1 % (0.0-0.8); Hematocrit 45.5 VOL% (42.0-52.0); Hemoglobin 14.2 GM/DL (14.0-18.0); Immature Granulocytes % 0.7 %; Immature Granulocytes Absolute 0.09 #; Lymphocytes # 1.2 10*3/uL (1.4-4.0); Lymphocytes % 8.4 % (21.2-54.2); Mean Corpuscular HGB Conc 31.2 GM/DL (32-36); Mean Corpuscular Volume 93.2 FL (87-102); Mean Platelet Volume 11.2 FL (9.6-12.0); Monocytes % 4.4 % (1.7-12.7); Neutrophils % 86.4 % (38.7-73.9); Platelet Count 219 T/CUMM (130-400); Red Blood Count 4.88 MC/CUMM (3.8-5.5); Red Cell Distribution Width 13.7 % (9.3-17.3); White Blood Count 13.7 T/CUMM (4-12)
[2021-01-27 05:45] LABS: Albumin 2.3 G/DL (3.4-5.0); Bilirubin,Total 1.2 MG/DL (0.2-1.0); Calcium 8.1 MG/DL (8.5-10.1); Osmolality,Calculated 290.3 MOS/KG (273-304); Potassium 4.3 MMOL/L (3.5-5.1); Total Protein 5.2 G/DL (6.4-8.2)
[2021-01-27] MEDS ORDERED: PANTOPRAZOLE 40 MG TABLET PO SCH (06:30)
[2021-01-27] MEDS ORDERED: FUROSEMIDE 40 MG TABLET PO SCH (08:00)
[2021-01-27] MEDS: METOPROLOL TARTRATE 25 MG TABLET PO SCH (08:41)
[2021-01-27] MEDS: CIPROFLOXACIN 500 MG TABLET PO SCH (08:41)
[2021-01-27] MEDS: methylPREDNISolone SOD SUC 40 MG/1 ML VIAL IV SCH (08:42)
[2021-01-27 12:06] VITALS: BP 115/59
[2021-01-28] MEDS ORDERED: METOPROLOL SUCCINATE XL 25 MG TABLET PO SCH (09:00)
== END 2021-01-27 15:27 | disposition home or self-care (01) | DRG 130 ==
LOC: N.ED 17:52 → N.EDINP 21:23 → SUATTDRO 21:23 → N.ICU 22:28 → N.5E 01-25 14:37
PROVIDERS: ADMIT Internal Medicine; ATTEND Internal Medicine

== ENCOUNTER 2021-02-07 02:16 | Inpatient (IN) ==
[2021-02-07] MEDS ORDERED: SODIUM CHLORIDE 0.9% 1,000 ML IV STA (02:46)
[2021-02-07] MEDS ORDERED: ACETAMINOPHEN 500 MG TABLET ONE ×2 (02:58→02:59)
[2021-02-07 03:00] LABS: ABG Base Excess 4.4 MMOL/L (-2.5-2.5); ABG HCO3 28.3 MMOL/L (20-26); ABG Oxygen Saturation 99.1 % (95-100); ABG PH 7.247 (7.35-7.45); ABG TCO2 31.5 MMOL/L (23-27)
[2021-02-07 03:00] LABS: PT Patient Result 11.1 SECS (10.5-12.0)
[2021-02-07] MEDS ORDERED: ACETAMINOPHEN 500 MG TABLET PO STA (03:01)
[2021-02-07 03:05] LABS: ABG PCO2 80.3 MM HG (35-48)
[2021-02-07 03:09] LABS: Alanine Aminotransferase 80 U/L (16-61); Albumin 3.5 G/DL (3.4-5.0); Alkaline Phosphatase 150 U/L (45-117); Aspartate Amino Transferase 41 U/L (0-37); Bilirubin,Total < 0.39 MG/DL (0.2-1.0); Blood Urea Nitrogen 17 MG/DL (7-18); Calcium 8.6 MG/DL (8.5-10.1); Estimated Glom Filtration Rate 107 ML/MIN; Glucose 141 MG/DL (74-106); Potassium 5.4 MMOL/L (3.5-5.1); Total Protein 6.3 G/DL (6.4-8.2)
[2021-02-07 03:13] LABS: Basophils # 0.1 10*3/uL (0.0-0.2); Basophils % 0.4 % (0.0-0.8); Eosinophils # 0.1 10*3/uL (0.0-0.87); Eosinophils % 0.6 % (0.00-10.9); Hematocrit 43.2 VOL% (42.0-52.0); Immature Granulocytes % 0.3 %; Immature Granulocytes Absolute 0.04 #; Lymphocytes # 1.4 10*3/uL (1.4-4.0); Lymphocytes % 11.6 % (21.2-54.2); Mean Corpuscular HGB Conc 29.2 GM/DL (32-36); Mean Corpuscular Volume 100.7 FL (87-102); Mean Platelet Volume 11.6 FL (9.6-12.0); Monocytes % 8.1 % (1.7-12.7); Platelet Count 191 T/CUMM (130-400); Red Blood Count 4.29 MC/CUMM (3.8-5.5); Red Cell Distribution Width 14.6 % (9.3-17.3); White Blood Count 11.6 T/CUMM (4-12)
[2021-02-07 03:14] LABS: Hemoglobin 12.6 GM/DL (14.0-18.0)
[2021-02-07] MEDS ORDERED: methylPREDNISolone SOD SUC 125 MG/2 ML VIAL IV STA (03:16)
[2021-02-07] MEDS ORDERED: PIPERACILLIN/TAZOBACTAM 3,375 MG in SODIUM CHLORIDE 0.9% 100 ML IV STA (03:16)
[2021-02-07 03:17] LABS: Carbon Dioxide 37 MMOL/L (21-32); Osmolality,Calculated 284.3 MOS/KG (273-304); Sodium 141 MMOL/L (136-145)
[2021-02-07] MEDS ORDERED: VECURONIUM 10 MG VIAL IV ONE (03:33)
[2021-02-07] MEDS ORDERED: ETOMIDATE 20 MG/10 ML VIAL IV ONE ×2 (03:33→05:49)
[2021-02-07 04:32] LABS: ABG Base Excess -16.7 MMOL/L (-2.5-2.5); ABG HCO3 10.9 MMOL/L (20-26); ABG Oxygen Saturation 31.3 % (95-100); ABG PCO2 27.5 MM HG (35-48); ABG TCO2 10.5 MMOL/L (23-27)
[2021-02-07 04:34] LABS: ABG PH 7.186 (7.35-7.45); ABG PO2 22.4 MM HG (80-95)
[2021-02-07] MEDS ORDERED: VECURONIUM 10 MG VIAL IV STA (04:36)
[2021-02-07] MEDS: NOREPINEPHRINE 8 MG in SODIUM CHLORIDE 0.9% 242 ML IV PRN ×2 (04:39→18:13)
[2021-02-07] MEDS ORDERED: NOREPINEPHRINE 4 MG/4 ML VIAL IV ONE (04:41)
[2021-02-07 04:59] LABS: ABG Base Excess 5.1 MMOL/L (-2.5-2.5); ABG HCO3 28.9 MMOL/L (20-26); ABG Oxygen Saturation 91.8 % (95-100); ABG PCO2 41.2 MM HG (35-48); ABG PO2 53.6 MM HG (80-95); ABG TCO2 25.9 MMOL/L (23-27)
[2021-02-07] MEDS ORDERED: ALBUTEROL 2.5 MG/3 ML NEB RESP TX PRN (05:15)
[2021-02-07] MEDS ORDERED: NICOTINE 21 MG/24 HR PATCH TRANSDERM PRN (05:15)
[2021-02-07] MEDS ORDERED: ACETAMINOPHEN 325 MG TABLET PO PRN (05:15)
[2021-02-07] MEDS ORDERED: MORPHINE 4 MG/1 ML VIAL IV PRN (05:15)
[2021-02-07] MEDS ORDERED: ONDANSETRON 4 MG/2 ML VIAL IV PRN (05:15)
[2021-02-07] MEDS ORDERED: hydrALAZINE 20 MG/1 ML VIAL IV PRN (05:15)
[2021-02-07] MEDS: MIDAZOLAM 100 MG in SODIUM CHLORIDE 0.9% 80 ML IV PRN ×2 (05:47→17:50)
[2021-02-07] MEDS: ALBUTEROL/IPRATROPIUM 3 ML NEB RESP TX SCH ×3 (07:50→20:15)
[2021-02-07] MEDS: ENOXAPARIN 40 MG/0.4 ML SYRINGE SUBCUT SCH (08:55)
[2021-02-07] MEDS ORDERED: methylPREDNISolone SOD SUC 40 MG/1 ML VIAL IV SCH (09:00)
[2021-02-07] MEDS: methylPREDNISolone SOD SUC 40 MG/1 ML VIAL IV SCH ×2 (09:05→16:46)
[2021-02-07] MEDS: PIPERACILLIN/TAZOBACTAM 3,375 MG in SODIUM CHLORIDE 0.9% 100 ML IV SCH ×2 (11:59→18:09)
[2021-02-07] MEDS ORDERED: SODIUM CHLORIDE 0.9% 500 ML IV ONE (13:25)
[2021-02-08] MEDS: methylPREDNISolone SOD SUC 40 MG/1 ML VIAL IV SCH ×3 (00:32→15:32)
[2021-02-08] MEDS: ALBUTEROL/IPRATROPIUM 3 ML NEB RESP TX SCH ×4 (00:35→19:13)
[2021-02-08] MEDS: PIPERACILLIN/TAZOBACTAM 3,375 MG in SODIUM CHLORIDE 0.9% 100 ML IV SCH ×3 (03:27→18:04)
[2021-02-08 05:43] LABS: Basophils % 0.1 % (0.0-0.8); Hematocrit 40.3 VOL% (42.0-52.0); Hemoglobin 12.8 GM/DL (14.0-18.0); Immature Granulocytes % 0.6 %; Immature Granulocytes Absolute 0.06 #; Lymphocytes # 0.8 10*3/uL (1.4-4.0); Lymphocytes % 7.4 % (21.2-54.2); Mean Corpuscular HGB Conc 31.8 GM/DL (32-36); Mean Corpuscular Volume 92.6 FL (87-102); Mean Platelet Volume 11.4 FL (9.6-12.0); Monocytes % 2.5 % (1.7-12.7); Neutrophils % 89.4 % (38.7-73.9); Platelet Count 213 T/CUMM (130-400); Red Blood Count 4.35 MC/CUMM (3.8-5.5); Red Cell Distribution Width 14.8 % (9.3-17.3); White Blood Count 10.3 T/CUMM (4-12)
[2021-02-08 06:00] LABS: Albumin 2.6 G/DL (3.4-5.0); Bilirubin,Total 0.6 MG/DL (0.2-1.0); Calcium 8.5 MG/DL (8.5-10.1); Osmolality,Calculated 288.3 MOS/KG (273-304); Potassium 5.2 MMOL/L (3.5-5.1); Total Protein 5.9 G/DL (6.4-8.2)
[2021-02-08] MEDS: MIDAZOLAM 100 MG in SODIUM CHLORIDE 0.9% 80 ML IV PRN ×2 (06:18→19:55)
[2021-02-08 08:02] LABS: ABG Base Excess 2.6 MMOL/L (-2.5-2.5); ABG HCO3 26.8 MMOL/L (20-26); ABG Oxygen Saturation 99.9 % (95-100); ABG PH 7.469 (7.35-7.45); ABG TCO2 22.9 MMOL/L (23-27)
[2021-02-08] MEDS: ENOXAPARIN 40 MG/0.4 ML SYRINGE SUBCUT SCH (08:22)
[2021-02-08] MEDS ORDERED: GLUCAGON 1 MG VIAL IM PRN (09:23)
[2021-02-08] MEDS ORDERED: DEXTROSE 50% 25 GM/50 ML VIAL IV PRN (09:23)
[2021-02-08] MEDS: PANTOPRAZOLE 40 MG VIAL IV SCH (10:28)
[2021-02-08] MEDS ORDERED: QUEtiapine 25 MG TABLET PO SCH ×2 (11:00→14:00)
[2021-02-08] MEDS: INSULIN REGULAR 100 UNIT/ML SUBCUT SCH ×2 (11:03→17:57)
[2021-02-08] MEDS: NOREPINEPHRINE 8 MG in SODIUM CHLORIDE 0.9% 242 ML IV PRN (13:22)
[2021-02-08] MEDS: chlordiazePOXIDE 10 MG CAPSULE PO SCH ×2 (15:29→20:23)
[2021-02-08] MEDS: FUROSEMIDE 40 MG TABLET PO SCH (15:29)
[2021-02-08] MEDS: LORazepam 2 MG/1 ML VIAL IV PRN ×2 (16:52→20:23)
[2021-02-08] MEDS: QUEtiapine 25 MG TABLET PO SCH (23:32)
[2021-02-09] MEDS: methylPREDNISolone SOD SUC 40 MG/1 ML VIAL IV SCH ×4 (00:15→20:36)
[2021-02-09] MEDS: INSULIN REGULAR 100 UNIT/ML SUBCUT SCH ×4 (00:15→18:51)
[2021-02-09] MEDS: ALBUTEROL/IPRATROPIUM 3 ML NEB RESP TX SCH ×4 (00:48→19:27)
[2021-02-09] MEDS: PIPERACILLIN/TAZOBACTAM 3,375 MG in SODIUM CHLORIDE 0.9% 100 ML IV SCH ×3 (03:55→18:51)
[2021-02-09 04:31] LABS: Allen Test Positive; Pt O2 Delivery Device Ventilator
[2021-02-09 04:32] LABS: ABG Base Excess 7.3 MMOL/L (-2.5-2.5); ABG HCO3 31.7 MMOL/L (20-26); ABG Oxygen Saturation 97.9 % (95-100); ABG PCO2 43.7 MM HG (35-48); ABG PH 7.478 (7.35-7.45); ABG PO2 107.2 MM HG (80-95)
[2021-02-09 05:53] LABS: Basophils % 0.1 % (0.0-0.8); Hematocrit 37.2 VOL% (42.0-52.0); Hemoglobin 11.6 GM/DL (14.0-18.0); Immature Granulocytes % 0.5 %; Immature Granulocytes Absolute 0.09 #; Lymphocytes # 1.4 10*3/uL (1.4-4.0); Lymphocytes % 8.6 % (21.2-54.2); Mean Corpuscular HGB Conc 31.2 GM/DL (32-36); Mean Corpuscular Volume 93.7 FL (87-102); Mean Platelet Volume 11.4 FL (9.6-12.0); Monocytes % 5.4 % (1.7-12.7); Neutrophils % 85.4 % (38.7-73.9); Platelet Count 217 T/CUMM (130-400); Red Blood Count 3.97 MC/CUMM (3.8-5.5); Red Cell Distribution Width 15.1 % (9.3-17.3); White Blood Count 16.4 T/CUMM (4-12)
[2021-02-09 06:36] LABS: Calcium 8.6 MG/DL (8.5-10.1); Potassium 4.1 MMOL/L (3.5-5.1)
[2021-02-09] MEDS: FOLIC ACID 1 MG TABLET PO SCH (08:11)
[2021-02-09] MEDS: chlordiazePOXIDE 10 MG CAPSULE PO SCH (08:11)
[2021-02-09] MEDS: FUROSEMIDE 40 MG TABLET PO SCH ×2 (08:11→15:48)
[2021-02-09] MEDS: THIAMINE 100 MG TABLET PO SCH (08:11)
[2021-02-09] MEDS: MULTIVITAMIN (BEROCCA) TABLET PO SCH (08:11)
[2021-02-09] MEDS: PANTOPRAZOLE 40 MG VIAL IV SCH (08:15)
[2021-02-09] MEDS: ENOXAPARIN 40 MG/0.4 ML SYRINGE SUBCUT SCH (08:15)
[2021-02-09] MEDS: LORazepam 2 MG/1 ML VIAL IV PRN ×2 (08:18→11:43)
[2021-02-09] MEDS: MIDAZOLAM 100 MG in SODIUM CHLORIDE 0.9% 80 ML IV PRN ×2 (08:47→23:16)
[2021-02-09] MEDS: chlordiazePOXIDE 25 MG CAPSULE PO SCH ×3 (09:07→20:36)
[2021-02-09] MEDS ORDERED: VANCOMYCIN INJ 1,750 MG in SODIUM CHLORIDE 0.9% 500 ML IV ONE (10:30)
[2021-02-09] MEDS: QUEtiapine 25 MG TABLET PO SCH ×2 (11:25→22:19)
[2021-02-09] MEDS: VANCOMYCIN INJ 1,000 MG in SODIUM CHLORIDE 0.9% 250 ML IV SCH (22:19)
[2021-02-10] MEDS: ALBUTEROL/IPRATROPIUM 3 ML NEB RESP TX SCH ×4 (00:10→19:43)
[2021-02-10] MEDS: INSULIN REGULAR 100 UNIT/ML SUBCUT SCH ×4 (00:17→17:31)
[2021-02-10] MEDS: PIPERACILLIN/TAZOBACTAM 3,375 MG in SODIUM CHLORIDE 0.9% 100 ML IV SCH ×3 (03:40→18:51)
[2021-02-10 04:37] LABS: ABG Base Excess 7.2 MMOL/L (-2.5-2.5); ABG Oxygen Saturation 97.7 % (95-100); ABG PCO2 40.7 MM HG (35-48); ABG PO2 102.9 MM HG (80-95); ABG TCO2 32.3 MMOL/L (23-27); Allen Test Positive; Pt O2 Delivery Device Ventilator
[2021-02-10 05:38] LABS: Basophils % 0.1 % (0.0-0.8); Hematocrit 40.4 VOL% (42.0-52.0); Hemoglobin 13.5 GM/DL (14.0-18.0); Immature Granulocytes % 0.5 %; Immature Granulocytes Absolute 0.06 #; Lymphocytes # 0.9 10*3/uL (1.4-4.0); Lymphocytes % 7.9 % (21.2-54.2); Mean Corpuscular HGB Conc 33.4 GM/DL (32-36); Mean Corpuscular Volume 90.2 FL (87-102); Mean Platelet Volume 11.3 FL (9.6-12.0); Monocytes % 3.8 % (1.7-12.7); Neutrophils % 87.7 % (38.7-73.9); Platelet Count 218 T/CUMM (130-400); Red Blood Count 4.48 MC/CUMM (3.8-5.5); Red Cell Distribution Width 15.3 % (9.3-17.3); White Blood Count 11.3 T/CUMM (4-12)
[2021-02-10 05:54] LABS: Calcium 8.9 MG/DL (8.5-10.1); Osmolality,Calculated 285.3 MOS/KG (273-304); Potassium 4.2 MMOL/L (3.5-5.1)
[2021-02-10] MEDS: MULTIVITAMIN (BEROCCA) TABLET PO SCH (08:28)
[2021-02-10] MEDS: FUROSEMIDE 40 MG TABLET PO SCH ×2 (08:28→15:03)
[2021-02-10] MEDS: FOLIC ACID 1 MG TABLET PO SCH (08:28)
[2021-02-10] MEDS: methylPREDNISolone SOD SUC 40 MG/1 ML VIAL IV SCH ×2 (08:29→20:47)
[2021-02-10] MEDS: ENOXAPARIN 40 MG/0.4 ML SYRINGE SUBCUT SCH (08:29)
[2021-02-10] MEDS: THIAMINE 100 MG TABLET PO SCH (08:29)
[2021-02-10] MEDS: chlordiazePOXIDE 25 MG CAPSULE PO SCH ×3 (08:29→20:47)
[2021-02-10] MEDS: PANTOPRAZOLE 40 MG VIAL IV SCH (08:29)
[2021-02-10] MEDS: VANCOMYCIN INJ 1,000 MG in SODIUM CHLORIDE 0.9% 250 ML IV SCH ×2 (09:09→22:36)
[2021-02-10] MEDS ORDERED: LORazepam 2 MG/1 ML VIAL ONE ×2 (09:23→16:02)
[2021-02-10] MEDS: LORazepam 2 MG/1 ML VIAL IV PRN ×2 (09:28→16:07)
[2021-02-10] MEDS: MIDAZOLAM 100 MG in SODIUM CHLORIDE 0.9% 80 ML IV PRN (09:55)
[2021-02-10] MEDS: QUEtiapine 25 MG TABLET PO SCH ×2 (10:38→22:10)
[2021-02-10] MEDS ORDERED: fentaNYL INJ 1,250 MCG in SODIUM CHLORIDE 0.9% 225 ML IV PRN (10:45)
[2021-02-11] MEDS: MIDAZOLAM 100 MG in SODIUM CHLORIDE 0.9% 80 ML IV PRN (00:09)
[2021-02-11] MEDS: INSULIN REGULAR 100 UNIT/ML SUBCUT SCH ×5 (00:11→21:04)
[2021-02-11] MEDS: ALBUTEROL/IPRATROPIUM 3 ML NEB RESP TX SCH ×4 (01:32→19:47)
[2021-02-11] MEDS: PIPERACILLIN/TAZOBACTAM 3,375 MG in SODIUM CHLORIDE 0.9% 100 ML IV SCH ×3 (03:23→18:40)
[2021-02-11 03:29] LABS: ABG Base Excess 8.8 MMOL/L (-2.5-2.5); ABG HCO3 32.5 MMOL/L (20-26); ABG Oxygen Saturation 97.9 % (95-100); ABG PCO2 43.8 MM HG (35-48); ABG PH 7.488 (7.35-7.45); ABG PO2 98.9 MM HG (80-95); ABG TCO2 28.9 MMOL/L (23-27)
[2021-02-11 04:35] LABS: Basophils % 0.1 % (0.0-0.8); Hematocrit 39.9 VOL% (42.0-52.0); Hemoglobin 12.9 GM/DL (14.0-18.0); Immature Granulocytes % 0.4 %; Immature Granulocytes Absolute 0.03 #; Lymphocytes # 1.1 10*3/uL (1.4-4.0); Lymphocytes % 13.5 % (21.2-54.2); Mean Corpuscular HGB Conc 32.3 GM/DL (32-36); Mean Corpuscular Volume 91.1 FL (87-102); Mean Platelet Volume 10.9 FL (9.6-12.0); Monocytes % 5.2 % (1.7-12.7); Neutrophils % 80.8 % (38.7-73.9); Platelet Count 234 T/CUMM (130-400); Red Blood Count 4.38 MC/CUMM (3.8-5.5); Red Cell Distribution Width 15.1 % (9.3-17.3); White Blood Count 8.1 T/CUMM (4-12)
[2021-02-11 04:55] LABS: Calcium 9.2 MG/DL (8.5-10.1); Osmolality,Calculated 281.7 MOS/KG (273-304); Potassium 4.1 MMOL/L (3.5-5.1)
[2021-02-11 04:59] LABS: Albumin 2.7 G/DL (3.4-5.0); Bilirubin,Total 0.6 MG/DL (0.2-1.0); Calcium 8.8 MG/DL (8.5-10.1); Osmolality,Calculated 285.4 MOS/KG (273-304); Potassium 4.3 MMOL/L (3.5-5.1); Total Protein 5.4 G/DL (6.4-8.2)
[2021-02-11] MEDS: chlordiazePOXIDE 25 MG CAPSULE PO SCH ×3 (08:27→20:59)
[2021-02-11] MEDS: methylPREDNISolone SOD SUC 40 MG/1 ML VIAL IV SCH ×2 (08:27→15:48)
[2021-02-11] MEDS: FOLIC ACID 1 MG TABLET PO SCH (08:27)
[2021-02-11] MEDS: ENOXAPARIN 40 MG/0.4 ML SYRINGE SUBCUT SCH (08:27)
[2021-02-11] MEDS: PANTOPRAZOLE 40 MG VIAL IV SCH (08:27)
[2021-02-11] MEDS: MULTIVITAMIN (BEROCCA) TABLET PO SCH (08:27)
[2021-02-11] MEDS: FUROSEMIDE 40 MG TABLET PO SCH ×2 (08:27→15:47)
[2021-02-11] MEDS: THIAMINE 100 MG TABLET PO SCH (08:28)
[2021-02-11] MEDS: VANCOMYCIN INJ 1,000 MG in SODIUM CHLORIDE 0.9% 250 ML IV SCH (09:46)
[2021-02-11] MEDS: QUEtiapine 25 MG TABLET PO SCH ×2 (10:01→23:03)
[2021-02-12] MEDS: ALBUTEROL/IPRATROPIUM 3 ML NEB RESP TX SCH ×4 (00:41→19:54)
[2021-02-12] MEDS: PIPERACILLIN/TAZOBACTAM 3,375 MG in SODIUM CHLORIDE 0.9% 100 ML IV SCH ×3 (03:35→20:29)
[2021-02-12] MEDS: methylPREDNISolone SOD SUC 40 MG/1 ML VIAL IV SCH ×2 (03:35→18:11)
[2021-02-12 06:33] LABS: Basophils % 0.3 % (0.0-0.8); Eosinophils # 0.1 10*3/uL (0.0-0.87); Eosinophils % 1.1 % (0.00-10.9); Hematocrit 48.5 VOL% (42.0-52.0); Hemoglobin 15.5 GM/DL (14.0-18.0); Immature Granulocytes % 0.8 %; Immature Granulocytes Absolute 0.05 #; Lymphocytes % 15.5 % (21.2-54.2); Mean Corpuscular Volume 92.7 FL (87-102); Monocytes % 5.8 % (1.7-12.7); Neutrophils % 76.5 % (38.7-73.9); Platelet Count 269 T/CUMM (130-400); Red Blood Count 5.23 MC/CUMM (3.8-5.5); Red Cell Distribution Width 14.6 % (9.3-17.3); White Blood Count 6.6 T/CUMM (4-12)
[2021-02-12 06:47] LABS: Calcium 9.2 MG/DL (8.5-10.1); Osmolality,Calculated 285.5 MOS/KG (273-304); Potassium 4.3 MMOL/L (3.5-5.1)
[2021-02-12] MEDS: PANTOPRAZOLE 40 MG VIAL IV SCH (08:47)
[2021-02-12] MEDS: INSULIN REGULAR 100 UNIT/ML SUBCUT SCH ×4 (08:48→20:36)
[2021-02-12] MEDS: ENOXAPARIN 40 MG/0.4 ML SYRINGE SUBCUT SCH (08:48)
[2021-02-12] MEDS: MULTIVITAMIN (BEROCCA) TABLET PO SCH (08:49)
[2021-02-12] MEDS: FUROSEMIDE 40 MG TABLET PO SCH ×2 (08:49→18:10)
[2021-02-12] MEDS: THIAMINE 100 MG TABLET PO SCH (08:49)
[2021-02-12] MEDS: chlordiazePOXIDE 25 MG CAPSULE PO SCH ×3 (08:49→20:35)
[2021-02-12] MEDS: FOLIC ACID 1 MG TABLET PO SCH (08:49)
[2021-02-12] MEDS: carvediloL 3.125 MG TABLET PO SCH ×2 (11:51→20:29)
[2021-02-12] MEDS: INSULIN GLARGINE 100 UNIT/ML SUBCUT SCH (20:30)
[2021-02-12] MEDS: QUEtiapine 25 MG TABLET PO SCH (20:31)
[2021-02-13] MEDS: ALBUTEROL/IPRATROPIUM 3 ML NEB RESP TX SCH ×4 (00:09→19:12)
[2021-02-13] MEDS: methylPREDNISolone SOD SUC 40 MG/1 ML VIAL IV SCH (03:55)
[2021-02-13 04:32] LABS: Basophils % 0.1 % (0.0-0.8); Eosinophils % 0.3 % (0.00-10.9); Hematocrit 41.1 VOL% (42.0-52.0); Hemoglobin 13.4 GM/DL (14.0-18.0); Immature Granulocytes % 0.8 %; Immature Granulocytes Absolute 0.06 #; Lymphocytes % 26.3 % (21.2-54.2); Mean Corpuscular HGB Conc 32.6 GM/DL (32-36); Mean Corpuscular Volume 90.3 FL (87-102); Mean Platelet Volume 11.1 FL (9.6-12.0); Monocytes % 6.5 % (1.7-12.7); Platelet Count 291 T/CUMM (130-400); Red Blood Count 4.55 MC/CUMM (3.8-5.5); Red Cell Distribution Width 14.3 % (9.3-17.3); White Blood Count 7.5 T/CUMM (4-12)
[2021-02-13 04:51] LABS: Calcium 8.5 MG/DL (8.5-10.1); Osmolality,Calculated 287.5 MOS/KG (273-304); Potassium 3.7 MMOL/L (3.5-5.1)
[2021-02-13] MEDS: predniSONE 20 MG TABLET PO SCH (09:51)
[2021-02-13] MEDS: FUROSEMIDE 40 MG TABLET PO SCH ×2 (09:51→15:06)
[2021-02-13] MEDS: THIAMINE 100 MG TABLET PO SCH (09:51)
[2021-02-13] MEDS: chlordiazePOXIDE 10 MG CAPSULE PO SCH ×3 (09:51→20:05)
[2021-02-13] MEDS: carvediloL 3.125 MG TABLET PO SCH ×2 (09:51→20:05)
[2021-02-13] MEDS: MULTIVITAMIN (BEROCCA) TABLET PO SCH (09:51)
[2021-02-13] MEDS: FOLIC ACID 1 MG TABLET PO SCH (09:51)
[2021-02-13] MEDS: INSULIN REGULAR 100 UNIT/ML SUBCUT SCH ×4 (09:52→20:30)
[2021-02-13] MEDS: ENOXAPARIN 40 MG/0.4 ML SYRINGE SUBCUT SCH (09:52)
[2021-02-13] MEDS ORDERED: BISACODYL 10 MG SUPP RECTAL ONE (10:34)
[2021-02-13] MEDS ORDERED: SENNA 8.6 MG TABLET PO PRN (11:00)
[2021-02-13] MEDS: POLYETHYLENE GLYCOL POWDER 17 GM PACK PO SCH (11:04)
[2021-02-13] MEDS: QUEtiapine 25 MG TABLET PO SCH (20:05)
[2021-02-13] MEDS: INSULIN GLARGINE 100 UNIT/ML SUBCUT SCH (20:30)
[2021-02-14] MEDS: ALBUTEROL/IPRATROPIUM 3 ML NEB RESP TX SCH ×3 (00:21→12:17)
[2021-02-14] MEDS: POLYETHYLENE GLYCOL POWDER 17 GM PACK PO SCH (08:56)
[2021-02-14] MEDS: FOLIC ACID 1 MG TABLET PO SCH (08:57)
[2021-02-14] MEDS: FUROSEMIDE 40 MG TABLET PO SCH (08:57)
[2021-02-14] MEDS: THIAMINE 100 MG TABLET PO SCH (08:57)
[2021-02-14] MEDS: MULTIVITAMIN (BEROCCA) TABLET PO SCH (08:57)
[2021-02-14] MEDS: predniSONE 20 MG TABLET PO SCH (08:57)
[2021-02-14] MEDS: chlordiazePOXIDE 10 MG CAPSULE PO SCH (08:57)
[2021-02-14] MEDS: carvediloL 3.125 MG TABLET PO SCH (08:58)
[2021-02-14] MEDS: ENOXAPARIN 40 MG/0.4 ML SYRINGE SUBCUT SCH (08:59)
[2021-02-14] MEDS ORDERED: CHOLECALCIFEROL 1,000 UNIT TABLET PO SCH (09:00)
[2021-02-14] MEDS: INSULIN REGULAR 100 UNIT/ML SUBCUT SCH ×3 (09:01→12:16)
[2021-02-14] MEDS ORDERED: chlordiazePOXIDE 10 MG CAPSULE PO PRN (10:13)
[2021-02-14] MEDS ORDERED: AMOXICILLIN/CLAV 875 MG TABLET PO SCH (11:30)
[2021-02-14 12:10] VITALS: BP 97/68
[2021-02-14] MEDS ORDERED: metFORMIN 500 MG TABLET PO SCH (17:00)
== END 2021-02-14 14:15 | disposition home or self-care (01) | DRG 130 ==
LOC: EDUNIT# → EDBD → N.ED 02:16 → N.EDINP 05:15 → SUATTDRO 05:15 → N.CC 05:38 → N.5E 02-12 14:20
PROVIDERS: ADMIT Internal Medicine; ATTEND Family Medicine

== ENCOUNTER 2021-04-24 15:13 | Inpatient (IN) ==
[2021-04-24] MEDS ORDERED: methylPREDNISolone SOD SUC 125 MG/2 ML VIAL ONE (15:38)
[2021-04-24] MEDS ORDERED: FUROSEMIDE 40 MG/4 ML VIAL ONE (15:38)
[2021-04-24] MEDS ORDERED: methylPREDNISolone SOD SUC 125 MG/2 ML VIAL IV STA (15:38)
[2021-04-24] MEDS ORDERED: ALBUTEROL 2.5 MG/3 ML NEB RESP TX STA (15:38)
[2021-04-24] MEDS ORDERED: FUROSEMIDE 40 MG/4 ML VIAL IV STA (16:02)
[2021-04-24 16:03] LABS: Basophils # 0.1 10*3/uL (0.0-0.2); Basophils % 0.3 % (0.0-0.8); Eosinophils % 0.1 % (0.00-10.9); Hematocrit 51.1 VOL% (42.0-52.0); Hemoglobin 15.8 GM/DL (14.0-18.0); Immature Granulocytes % 0.6 %; Immature Granulocytes Absolute 0.12 #; Lymphocytes # 1.5 10*3/uL (1.4-4.0); Lymphocytes % 7.9 % (21.2-54.2); Mean Corpuscular HGB Conc 30.9 GM/DL (32-36); Mean Corpuscular Volume 96.2 FL (87-102); Mean Platelet Volume 11.1 FL (9.6-12.0); Monocytes % 6.7 % (1.7-12.7); Neutrophils % 84.4 % (38.7-73.9); Platelet Count 239 T/CUMM (130-400); Red Blood Count 5.31 MC/CUMM (3.8-5.5); Red Cell Distribution Width 15.4 % (9.3-17.3); White Blood Count 18.5 T/CUMM (4-12)
[2021-04-24 16:19] LABS: Albumin 3.7 G/DL (3.4-5.0); Bilirubin,Total 0.9 MG/DL (0.20-1.00); Calcium 8.8 MG/DL (8.5-10.1); Osmolality,Calculated 273.8 MOS/KG (273-304); Potassium 4.3 MMOL/L (3.5-5.1); Total Protein 7.1 G/DL (6.4-8.2)
[2021-04-24 16:21] LABS: ABG Base Excess 0.9 MMOL/L (-2.5-2.5); ABG HCO3 25.2 MMOL/L (20-26); ABG Oxygen Saturation 98.7 % (95-100); ABG PCO2 55.7 MM HG (35-48); ABG PH 7.319 (7.35-7.45); ABG TCO2 24.7 MMOL/L (23-27)
[2021-04-24] MEDS ORDERED: PIPERACILLIN/TAZOBACTAM 3,375 MG in SODIUM CHLORIDE 0.9% 100 ML IV STA ×2 (16:27→16:29)
[2021-04-24] MEDS ORDERED: ETOMIDATE 20 MG/10 ML VIAL IV ONE (16:40)
[2021-04-24] MEDS ORDERED: ROCURONIUM 100 MG/10 ML VIAL IV ONE (16:40)
[2021-04-24] MEDS ORDERED: ALBUTEROL 2.5 MG/3 ML NEB RESP TX PRN (16:51)
[2021-04-24] MEDS ORDERED: LACTULOSE 20 GM/30 ML UDCUP PO PRN (16:53)
[2021-04-24] MEDS ORDERED: ONDANSETRON 4 MG/2 ML VIAL IV PRN (16:53)
[2021-04-24] MEDS ORDERED: ACETAMINOPHEN 325 MG TABLET PO PRN (16:53)
[2021-04-24] MEDS ORDERED: MIDAZOLAM 100 MG in SODIUM CHLORIDE 0.9% 80 ML IV PRN (17:13)
[2021-04-24 17:15] LABS: INR 1.1; PT Patient Result 12.3 SECS (10.5-12.0)
[2021-04-24] MEDS: ENOXAPARIN 40 MG/0.4 ML SYRINGE SUBCUT SCH (17:20)
[2021-04-24 17:37] LABS: ABG Base Excess 1.2 MMOL/L (-2.5-2.5); ABG HCO3 25.5 MMOL/L (20-26); ABG Oxygen Saturation 99.7 % (95-100); ABG PCO2 51.9 MM HG (35-48); ABG PH 7.341 (7.35-7.45); ABG TCO2 24.4 MMOL/L (23-27)
[2021-04-24] MEDS: PANTOPRAZOLE 40 MG VIAL IV SCH (17:37)
[2021-04-24] MEDS ORDERED: DEXTROSE 50% 25 GM/50 ML VIAL IV PRN (17:37)
[2021-04-24] MEDS: methylPREDNISolone SOD SUC 40 MG/1 ML VIAL IV SCH (17:44)
[2021-04-24] MEDS: cefTRIAXone 1,000 MG in SODIUM CHLORIDE 0.9% 100 ML IV SCH (18:23)
[2021-04-24] MEDS ORDERED: NOREPINEPHRINE 8 MG in SODIUM CHLORIDE 0.9% 242 ML IV PRN (18:59)
[2021-04-24] MEDS: CLINDAMYCIN INJ 600 MG/50 ML PREMIX IV SCH (19:07)
[2021-04-24 19:33] LABS: Bilirubin,Urine Negative (Negative); Blood, Urine Negative (Negative); Glucose,Urine (UA) Negative (Negative); Hyaline Casts,Urine 4 /LPF (0-3); Ketones,Urine Negative (Negative); Mucus,Urine Occasional /LPF (Occasional); Nitrite,Urine Negative (Negative); Protein,Urine Negative; RBC,Urine 1 /HPF (0-4); Urine Appearance CLEAR (Clear); Urine Color Yellow (Yellow); Urine Urobilinogen < 2.0 EU/DL (0.2-1.0)
[2021-04-24] MEDS: ALBUTEROL/IPRATROPIUM 3 ML NEB RESP TX SCH (19:40)
[2021-04-24] MEDS: INSULIN LISPRO 100 UNIT/ML SUBCUT SCH (20:00)
[2021-04-24] MEDS: carvediloL 3.125 MG TABLET PO SCH (20:03)
[2021-04-25] MEDS: ALBUTEROL/IPRATROPIUM 3 ML NEB RESP TX SCH ×4 (00:26→21:35)
[2021-04-25] MEDS: methylPREDNISolone SOD SUC 40 MG/1 ML VIAL IV SCH ×4 (01:16→20:57)
[2021-04-25] MEDS: INSULIN LISPRO 100 UNIT/ML SUBCUT SCH ×4 (01:25→22:04)
[2021-04-25] MEDS: CLINDAMYCIN INJ 600 MG/50 ML PREMIX IV SCH ×3 (01:25→21:06)
[2021-04-25 03:22] LABS: ABG Base Excess 1.1 MMOL/L (-2.5-2.5); ABG HCO3 25.4 MMOL/L (20-26); ABG Oxygen Saturation 99.7 % (95-100); ABG PCO2 51.6 MM HG (35-48); ABG PH 7.341 (7.35-7.45); ABG TCO2 24.4 MMOL/L (23-27); Allen Test Positive; Pt O2 Delivery Device Ventilator
[2021-04-25 05:49] LABS: Basophils % 0.2 % (0.0-0.8); Hematocrit 42.5 VOL% (42.0-52.0); Immature Granulocytes % 0.6 %; Immature Granulocytes Absolute 0.12 #; Lymphocytes # 0.7 10*3/uL (1.4-4.0); Lymphocytes % 3.4 % (21.2-54.2); Mean Corpuscular HGB Conc 31.8 GM/DL (32-36); Mean Corpuscular Volume 94.2 FL (87-102); Monocytes % 2.6 % (1.7-12.7); Neutrophils % 93.2 % (38.7-73.9); Platelet Count 218 T/CUMM (130-400); Red Blood Count 4.51 MC/CUMM (3.8-5.5); Red Cell Distribution Width 15.1 % (9.3-17.3); White Blood Count 19.2 T/CUMM (4-12)
[2021-04-25 06:16] LABS: Hemoglobin 13.5 GM/DL (14.0-18.0)
[2021-04-25 06:17] LABS: Albumin 2.6 G/DL (3.4-5.0); Bilirubin,Total 0.5 MG/DL (0.20-1.00); Calcium 8.5 MG/DL (8.5-10.1); Osmolality,Calculated 281.8 MOS/KG (273-304); Potassium 4.2 MMOL/L (3.5-5.1); Risk Ratio 2.39; Thyroid Stimulating Hormone 0.25 uIU/ml (0.358-3.74); Total Protein 6.2 G/DL (6.4-8.2); VLDL Cholesterol 12.8 MG/DL
[2021-04-25] MEDS: BUDESONIDE 0.5 MG/2 ML NEB RESP TX SCH (07:03)
[2021-04-25 07:41] LABS: Anisocytosis 1+; Band Neutrophils 22 % (0-10); Lymphocytes 1 % (20-55); Platelet Estimate Normal; Segmented Neutrophils 75 % (50-85); Total Cells Counted 100
[2021-04-25 07:42] LABS: Macrocytosis 1+
[2021-04-25] MEDS: FUROSEMIDE 40 MG/4 ML VIAL IV SCH (08:09)
[2021-04-25] MEDS: carvediloL 3.125 MG TABLET PO SCH ×2 (10:08→20:56)
[2021-04-25 13:45] LABS: ABG Base Excess 3.7 MMOL/L (-2.5-2.5); ABG HCO3 27.7 MMOL/L (20-26); ABG Oxygen Saturation 96.8 % (95-100); ABG PCO2 58.8 MM HG (35-48); ABG PH 7.336 (7.35-7.45); ABG PO2 96.3 MM HG (80-95); ABG TCO2 27.6 MMOL/L (23-27)
[2021-04-25] MEDS: PANTOPRAZOLE 40 MG VIAL IV SCH (16:05)
[2021-04-25] MEDS: ENOXAPARIN 40 MG/0.4 ML SYRINGE SUBCUT SCH (16:05)
[2021-04-25] MEDS: cefTRIAXone 1,000 MG in SODIUM CHLORIDE 0.9% 100 ML IV SCH (21:05)
[2021-04-26] MEDS: INSULIN LISPRO 100 UNIT/ML SUBCUT SCH ×4 (00:29→18:30)
[2021-04-26] MEDS: methylPREDNISolone SOD SUC 40 MG/1 ML VIAL IV SCH ×4 (00:44→18:00)
[2021-04-26] MEDS: CLINDAMYCIN INJ 600 MG/50 ML PREMIX IV SCH ×3 (00:44→18:00)
[2021-04-26] MEDS: ALBUTEROL/IPRATROPIUM 3 ML NEB RESP TX SCH ×4 (00:47→19:35)
[2021-04-26 05:24] LABS: ABG HCO3 29.8 MMOL/L (20-26); ABG Oxygen Saturation 94.5 % (95-100); ABG PCO2 54.7 MM HG (35-48); ABG PH 7.385 (7.35-7.45); ABG PO2 74.1 MM HG (80-95); ABG TCO2 28.8 MMOL/L (23-27)
[2021-04-26 05:34] LABS: Basophils % 0.1 % (0.0-0.8); Hematocrit 40.4 VOL% (42.0-52.0); Hemoglobin 12.7 GM/DL (14.0-18.0); Immature Granulocytes % 1.5 %; Immature Granulocytes Absolute 0.32 #; Lymphocytes # 0.6 10*3/uL (1.4-4.0); Lymphocytes % 2.7 % (21.2-54.2); Mean Corpuscular HGB Conc 31.4 GM/DL (32-36); Mean Corpuscular Volume 94.8 FL (87-102); Mean Platelet Volume 11.5 FL (9.6-12.0); Monocytes % 2.7 % (1.7-12.7); Platelet Count 178 T/CUMM (130-400); Red Blood Count 4.26 MC/CUMM (3.8-5.5); Red Cell Distribution Width 15.7 % (9.3-17.3); White Blood Count 21.3 T/CUMM (4-12)
[2021-04-26 05:58] LABS: Band Neutrophils 1 % (0-10); Hypochromasia 1+; Lymphocytes 2 % (20-55); Microcytosis 1+; Platelet Estimate Adequate; Segmented Neutrophils 97 % (50-85); Total Cells Counted 100
[2021-04-26] MEDS: BUDESONIDE 0.5 MG/2 ML NEB RESP TX SCH (07:13)
[2021-04-26] MEDS: FUROSEMIDE 40 MG/4 ML VIAL IV SCH (08:30)
[2021-04-26] MEDS ORDERED: IBUPROFEN 400 MG TABLET PO PRN (12:36)
[2021-04-26] MEDS: ENOXAPARIN 40 MG/0.4 ML SYRINGE SUBCUT SCH (17:59)
[2021-04-26] MEDS: PANTOPRAZOLE 40 MG VIAL IV SCH (17:59)
[2021-04-26] MEDS: cefTRIAXone 1,000 MG in SODIUM CHLORIDE 0.9% 100 ML IV SCH (18:50)
[2021-04-27] MEDS: methylPREDNISolone SOD SUC 40 MG/1 ML VIAL IV SCH ×4 (00:32→22:23)
[2021-04-27] MEDS: ALBUTEROL/IPRATROPIUM 3 ML NEB RESP TX SCH ×4 (00:57→19:35)
[2021-04-27] MEDS: INSULIN LISPRO 100 UNIT/ML SUBCUT SCH ×5 (03:55→23:55)
[2021-04-27] MEDS: CLINDAMYCIN INJ 600 MG/50 ML PREMIX IV SCH ×3 (03:57→18:00)
[2021-04-27 05:11] LABS: Basophils % 0.1 % (0.0-0.8); Hematocrit 39.2 VOL% (42.0-52.0); Hemoglobin 12.3 GM/DL (14.0-18.0); Immature Granulocytes Absolute 0.18 #; Lymphocytes # 0.7 10*3/uL (1.4-4.0); Lymphocytes % 3.8 % (21.2-54.2); Mean Corpuscular HGB Conc 31.4 GM/DL (32-36); Mean Corpuscular Volume 96.1 FL (87-102); Mean Platelet Volume 11.7 FL (9.6-12.0); Monocytes % 3.2 % (1.7-12.7); Neutrophils % 91.9 % (38.7-73.9); Platelet Count 227 T/CUMM (130-400); Red Blood Count 4.08 MC/CUMM (3.8-5.5); Red Cell Distribution Width 15.4 % (9.3-17.3); White Blood Count 18.4 T/CUMM (4-12)
[2021-04-27 05:35] LABS: Lymphocytes 2 % (20-55); Segmented Neutrophils 93 % (50-85); Total Cells Counted 100
[2021-04-27 05:36] LABS: Hypochromasia 1+; Microcytosis 1+; Platelet Estimate Adequate
[2021-04-27 05:39] LABS: Calcium 8.8 MG/DL (8.5-10.1); Osmolality,Calculated 284.8 MOS/KG (273-304)
[2021-04-27] MEDS: BUDESONIDE 0.5 MG/2 ML NEB RESP TX SCH (08:40)
[2021-04-27] MEDS: FUROSEMIDE 40 MG/4 ML VIAL IV SCH (09:56)
[2021-04-27] MEDS: cefTRIAXone 1,000 MG in SODIUM CHLORIDE 0.9% 100 ML IV SCH (16:54)
[2021-04-27] MEDS: ENOXAPARIN 40 MG/0.4 ML SYRINGE SUBCUT SCH (16:55)
[2021-04-27] MEDS ORDERED: ZALEPLON 5 MG CAPSULE PO PRN (21:44)
[2021-04-28] MEDS: ALBUTEROL/IPRATROPIUM 3 ML NEB RESP TX SCH ×3 (00:51→13:45)
[2021-04-28] MEDS: CLINDAMYCIN INJ 600 MG/50 ML PREMIX IV SCH ×3 (03:18→16:58)
[2021-04-28 05:23] LABS: Basophils % 0.1 % (0.0-0.8); Hematocrit 42.9 VOL% (42.0-52.0); Hemoglobin 13.5 GM/DL (14.0-18.0); Immature Granulocytes % 0.7 %; Immature Granulocytes Absolute 0.09 #; Lymphocytes # 0.8 10*3/uL (1.4-4.0); Lymphocytes % 5.9 % (21.2-54.2); Mean Corpuscular HGB Conc 31.5 GM/DL (32-36); Mean Corpuscular Volume 95.3 FL (87-102); Mean Platelet Volume 11.6 FL (9.6-12.0); Neutrophils % 89.3 % (38.7-73.9); Platelet Count 252 T/CUMM (130-400); Red Cell Distribution Width 15.1 % (9.3-17.3); White Blood Count 12.9 T/CUMM (4-12)
[2021-04-28 05:50] LABS: Calcium 8.5 MG/DL (8.5-10.1); Osmolality,Calculated 283.5 MOS/KG (273-304); Potassium 5.4 MMOL/L (3.5-5.1)
[2021-04-28] MEDS: INSULIN LISPRO 100 UNIT/ML SUBCUT SCH ×3 (05:57→18:12)
[2021-04-28] MEDS: methylPREDNISolone SOD SUC 40 MG/1 ML VIAL IV SCH ×2 (05:59→16:57)
[2021-04-28] MEDS: BUDESONIDE 0.5 MG/2 ML NEB RESP TX SCH (07:32)
[2021-04-28] MEDS ORDERED: PANTOPRAZOLE 40 MG TABLET PO SCH (09:00)
[2021-04-28] MEDS: FUROSEMIDE 40 MG/4 ML VIAL IV SCH (09:34)
[2021-04-28] MEDS ORDERED: SODIUM POLYSTYRENE SULFATE 15 GM/60 ML BOTTLE PO STA (10:09)
[2021-04-28] MEDS: ENOXAPARIN 40 MG/0.4 ML SYRINGE SUBCUT SCH (16:58)
[2021-04-28 17:08] VITALS: BP 133/74
[2021-04-28] MEDS: cefTRIAXone 1,000 MG in SODIUM CHLORIDE 0.9% 100 ML IV SCH (17:55)
== END 2021-04-28 19:45 | disposition home or self-care (01) | DRG 133 ==
LOC: N.ED 15:13 → N.EDINP 16:51 → SUATTDRO 16:51 → N.EDINP 04-25 17:47 → N.TELEN 04-25 18:00
PROVIDERS: ADMIT Internal Medicine; ATTEND Internal Medicine

== ENCOUNTER 2021-06-29 02:35 | Inpatient (IN) ==
[2021-06-29] MEDS ORDERED: methylPREDNISolone SOD SUC 125 MG/2 ML VIAL IV STA (02:57)
[2021-06-29] MEDS ORDERED: ONDANSETRON 4 MG/2 ML VIAL IV STA (02:57)
[2021-06-29] MEDS ORDERED: NITROGLYCERIN 2% OINT 1 INCH/GM PACK TOP STA (02:57)
[2021-06-29] MEDS ORDERED: MORPHINE 2 MG/1 ML SYRINGE IV STA (02:57)
[2021-06-29] MEDS ORDERED: FUROSEMIDE 100 MG/10 ML VIAL IV STA (02:57)
[2021-06-29] MEDS ORDERED: ALBUTEROL NEB SOLN 5 MG/ML 20 ML/BOTTLE CONT NEB SCH (03:00)
[2021-06-29] MEDS ORDERED: PIPERACILLIN/TAZOBACTAM 3,375 MG in SODIUM CHLORIDE 0.9% 100 ML IV STA (03:19)
[2021-06-29 03:29] LABS: ABG Base Excess 4.5 MMOL/L (-2.5-2.5); ABG HCO3 28.4 MMOL/L (20-26); ABG Oxygen Saturation 98.7 % (95-100); ABG PCO2 59.9 MM HG (35-48); ABG PH 7.339 (7.35-7.45); ABG TCO2 28.4 MMOL/L (23-27)
[2021-06-29 03:56] LABS: PT Patient Result 11.4 SECS (10.5-12.0)
[2021-06-29 04:10] LABS: Basophils # 0.1 10*3/uL (0.0-0.2); Basophils % 0.5 % (0.0-0.8); Eosinophils # 0.1 10*3/uL (0.0-0.87); Eosinophils % 1.3 % (0.00-10.9); Immature Granulocytes % 0.5 %; Immature Granulocytes Absolute 0.05 #; Lymphocytes # 2.7 10*3/uL (1.4-4.0); Mean Corpuscular HGB Conc 30.2 GM/DL (32-36); Mean Corpuscular Volume 99.5 FL (87-102); Mean Platelet Volume 10.9 FL (9.6-12.0); Neutrophils % 65.7 % (38.7-73.9); Platelet Count 210 T/CUMM (130-400); Red Blood Count 4.42 MC/CUMM (3.8-5.5); Red Cell Distribution Width 14.4 % (9.3-17.3); White Blood Count 10.6 T/CUMM (4-12)
[2021-06-29 04:11] LABS: Hemoglobin 13.3 GM/DL (14.0-18.0)
[2021-06-29 04:15] LABS: Bilirubin,Total 0.4 MG/DL (0.20-1.00); Calcium 8.6 MG/DL (8.5-10.1); Osmolality,Calculated 285.3 MOS/KG (273-304); Potassium 4.5 MMOL/L (3.5-5.1); Total Protein 5.8 G/DL (6.4-8.2)
[2021-06-29 04:17] LABS: Bilirubin,Urine Negative (Negative); Blood, Urine Negative (Negative); Glucose,Urine (UA) Negative (Negative); Ketones,Urine Negative (Negative); Mucus,Urine Occasional /LPF (Occasional); Nitrite,Urine Negative (Negative); Protein,Urine 30 MG/DL; RBC,Urine 3 /HPF (0-4); Squamous Epithelial Cell,Urine Occasional /HPF (0-10); Urine Appearance CLEAR (Clear); Urine Color Yellow (Yellow); Urine Specific Gravity 1.024 (1.001-1.035); Urine Urobilinogen < 2.0 EU/DL (0.2-1.0)
[2021-06-29 04:48] LABS: Barbiturates Screen,Urine Negative (Negative); Benzodiazepines Screen,Urine Negative (Negative); Cannabinoid Screen,Urine Positive (Negative); Opiate Screen,Urine Negative (Negative); Phencyclidine Screen,Urine Negative (Negative)
[2021-06-29] MEDS ORDERED: GLUCAGON 1 MG VIAL IM PRN (05:06)
[2021-06-29] MEDS ORDERED: ACETAMINOPHEN 325 MG TABLET PO PRN (05:06)
[2021-06-29] MEDS ORDERED: MORPHINE 2 MG/1 ML SYRINGE IV PRN (05:06)
[2021-06-29] MEDS ORDERED: DEXTROSE 50% 25 GM/50 ML VIAL IV PRN (05:06)
[2021-06-29] MEDS ORDERED: MAGNESIUM SULF RIDER 4 GM/100 ML PREMIX IV PRN (05:06)
[2021-06-29] MEDS ORDERED: MAGNESIUM SULF RIDER 2 GM/50 ML PREMIX IV PRN (05:06)
[2021-06-29] MEDS: ENOXAPARIN 40 MG/0.4 ML SYRINGE SUBCUT SCH (06:14)
[2021-06-29] MEDS: ALBUTEROL/IPRATROPIUM 3 ML NEB RESP TX SCH ×3 (07:15→20:36)
[2021-06-29] MEDS: FUROSEMIDE 40 MG/4 ML VIAL IV SCH ×2 (08:14→15:12)
[2021-06-29] MEDS: ONDANSETRON 4 MG/2 ML VIAL IV PRN (10:35)
[2021-06-29] MEDS: PANTOPRAZOLE 40 MG TABLET PO SCH (11:11)
[2021-06-29] MEDS: methylPREDNISolone SOD SUC 40 MG/1 ML VIAL IV SCH ×2 (13:33→21:06)
[2021-06-29] MEDS: LEVOFLOXACIN INJ 500 MG/100 ML PREMIX IV SCH (14:23)
[2021-06-30] MEDS: ALBUTEROL/IPRATROPIUM 3 ML NEB RESP TX SCH ×2 (02:20→07:21)
[2021-06-30] MEDS: methylPREDNISolone SOD SUC 40 MG/1 ML VIAL IV SCH ×2 (03:32→11:11)
[2021-06-30] MEDS: ENOXAPARIN 40 MG/0.4 ML SYRINGE SUBCUT SCH (05:05)
[2021-06-30 05:35] LABS: Basophils % 0.1 % (0.0-0.8); Hematocrit 40.5 VOL% (42.0-52.0); Hemoglobin 12.9 GM/DL (14.0-18.0); Immature Granulocytes % 0.6 %; Immature Granulocytes Absolute 0.08 #; Lymphocytes # 0.4 10*3/uL (1.4-4.0); Lymphocytes % 2.9 % (21.2-54.2); Mean Corpuscular HGB Conc 31.9 GM/DL (32-36); Mean Corpuscular Volume 96.7 FL (87-102); Mean Platelet Volume 11.1 FL (9.6-12.0); Monocytes % 1.5 % (1.7-12.7); Neutrophils % 94.9 % (38.7-73.9); Platelet Count 202 T/CUMM (130-400); Red Blood Count 4.19 MC/CUMM (3.8-5.5)
[2021-06-30 06:00] LABS: Band Neutrophils 2 % (0-10); Hypochromasia 1+; Lymphocytes 4 % (20-55); Microcytosis 1+; Segmented Neutrophils 92 % (50-85); Total Cells Counted 100
[2021-06-30 06:08] LABS: Albumin 2.7 G/DL (3.4-5.0); Bilirubin,Total 0.6 MG/DL (0.20-1.00); Calcium 8.7 MG/DL (8.5-10.1); Osmolality,Calculated 281.7 MOS/KG (273-304); Potassium 4.7 MMOL/L (3.5-5.1); Total Protein 5.8 G/DL (6.4-8.2)
[2021-06-30] MEDS ORDERED: ALBUTEROL/IPRATROPIUM 3 ML NEB RESP TX PRN (07:34)
[2021-06-30] MEDS: FUROSEMIDE 40 MG/4 ML VIAL IV SCH ×2 (09:01→16:52)
[2021-06-30] MEDS: carvediloL 3.125 MG TABLET PO SCH ×2 (09:01→21:59)
[2021-06-30] MEDS: PANTOPRAZOLE 40 MG TABLET PO SCH (09:01)
[2021-06-30] MEDS ORDERED: NICOTINE 21 MG/24 HR PATCH TRANSDERM PRN (11:38)
[2021-06-30] MEDS: LEVOFLOXACIN INJ 500 MG/100 ML PREMIX IV SCH (14:09)
[2021-06-30] MEDS: IPRATROPIUM 500 MCG/2.5 ML NEB RESP TX SCH ×3 (14:42→19:54)
[2021-06-30] MEDS: LEVALBUTEROL 1.25 MG/3 ML NEB RESP TX SCH ×3 (14:42→19:54)
[2021-06-30] MEDS: INSULIN LISPRO 100 UNIT/ML SUBCUT SCH ×2 (16:08→21:59)
[2021-06-30] MEDS ORDERED: methylPREDNISolone SOD SUC 40 MG/1 ML VIAL IV SCH (21:00)
[2021-07-01] MEDS: IPRATROPIUM 500 MCG/2.5 ML NEB RESP TX SCH ×4 (00:11→19:55)
[2021-07-01] MEDS: LEVALBUTEROL 1.25 MG/3 ML NEB RESP TX SCH ×4 (00:11→19:56)
[2021-07-01 05:13] LABS: Basophils % 0.1 % (0.0-0.8); Hemoglobin 13.2 GM/DL (14.0-18.0); Immature Granulocytes % 0.7 %; Immature Granulocytes Absolute 0.14 #; Lymphocytes # 0.4 10*3/uL (1.4-4.0); Lymphocytes % 2.3 % (21.2-54.2); Mean Corpuscular HGB Conc 30.7 GM/DL (32-36); Mean Corpuscular Volume 96.8 FL (87-102); Mean Platelet Volume 11.3 FL (9.6-12.0); Monocytes % 2.3 % (1.7-12.7); Neutrophils % 94.6 % (38.7-73.9); Platelet Count 231 T/CUMM (130-400); Red Blood Count 4.44 MC/CUMM (3.8-5.5); Red Cell Distribution Width 14.1 % (9.3-17.3); White Blood Count 19.1 T/CUMM (4-12)
[2021-07-01] MEDS: ENOXAPARIN 40 MG/0.4 ML SYRINGE SUBCUT SCH (05:16)
[2021-07-01 05:40] LABS: Hypochromasia 1+; Lymphocytes 1 % (20-55); Microcytosis 1+; Ovalocytes Slight; Segmented Neutrophils 96 % (50-85); Target Cells Slight; Total Cells Counted 100
[2021-07-01 05:41] LABS: Calcium 9.4 MG/DL (8.5-10.1); Platelet Estimate Normal; Polychromasia Slight; Potassium 4.8 MMOL/L (3.5-5.1)
[2021-07-01] MEDS: predniSONE 20 MG TABLET PO SCH ×2 (09:31→21:38)
[2021-07-01] MEDS: PANTOPRAZOLE 40 MG TABLET PO SCH (09:31)
[2021-07-01] MEDS: carvediloL 3.125 MG TABLET PO SCH ×2 (09:31→21:38)
[2021-07-01] MEDS: INSULIN LISPRO 100 UNIT/ML SUBCUT SCH ×3 (09:32→16:07)
[2021-07-01] MEDS ORDERED: MORPHINE 2 MG/1 ML SYRINGE IV ONE (10:09)
[2021-07-01] MEDS ORDERED: ALUM/MAG/SIMETH/LIDO VISC 1:1 30 ML BOTTLE PO ONE (10:10)
[2021-07-01] MEDS ORDERED: ONDANSETRON 4 MG/2 ML VIAL IV ONE (10:10)
[2021-07-01] MEDS ORDERED: NITROGLYCERIN SL 0.4 MG TABLET SL PRN (10:11)
[2021-07-01 10:47] LABS: Bilirubin,Urine Negative (Negative); Blood, Urine Negative (Negative); Glucose,Urine (UA) Negative (Negative); Ketones,Urine 5 mg/dL (Negative); Nitrite,Urine Negative (Negative); Protein,Urine Negative; RBC,Urine <1 /HPF (0-4); Squamous Epithelial Cell,Urine Occasional /HPF (0-10); Urine Appearance CLEAR (Clear); Urine Color Yellow (Yellow); Urine Specific Gravity 1.021 (1.001-1.035)
[2021-07-01] MEDS ORDERED: NITROGLYCERIN 2% OINT 1 INCH/GM PACK TOP SCH (15:00)
[2021-07-01] MEDS: LEVOFLOXACIN INJ 500 MG/100 ML PREMIX IV SCH ×2 (15:19→15:33)
[2021-07-01] MEDS: ONDANSETRON 4 MG/2 ML VIAL IV PRN (22:33)
[2021-07-02] MEDS: IPRATROPIUM 500 MCG/2.5 ML NEB RESP TX SCH ×3 (00:25→14:15)
[2021-07-02] MEDS: LEVALBUTEROL 1.25 MG/3 ML NEB RESP TX SCH ×3 (00:26→14:15)
[2021-07-02] MEDS: INSULIN LISPRO 100 UNIT/ML SUBCUT SCH ×4 (02:32→18:20)
[2021-07-02 04:26] LABS: Basophils % 0.1 % (0.0-0.8); Hematocrit 45.1 VOL% (42.0-52.0); Hemoglobin 13.8 GM/DL (14.0-18.0); Immature Granulocytes % 0.6 %; Immature Granulocytes Absolute 0.08 #; Lymphocytes # 0.7 10*3/uL (1.4-4.0); Lymphocytes % 4.8 % (21.2-54.2); Mean Corpuscular HGB Conc 30.6 GM/DL (32-36); Mean Corpuscular Volume 95.8 FL (87-102); Mean Platelet Volume 10.9 FL (9.6-12.0); Neutrophils % 91.5 % (38.7-73.9); Platelet Count 224 T/CUMM (130-400); Red Blood Count 4.71 MC/CUMM (3.8-5.5); Red Cell Distribution Width 14.3 % (9.3-17.3); White Blood Count 13.9 T/CUMM (4-12)
[2021-07-02 04:53] LABS: Lymphocytes 5 % (20-55); Platelet Estimate Adequate; Segmented Neutrophils 93 % (50-85); Total Cells Counted 100
[2021-07-02] MEDS: ENOXAPARIN 40 MG/0.4 ML SYRINGE SUBCUT SCH (05:05)
[2021-07-02 06:55] LABS: Calcium 8.9 MG/DL (8.5-10.1); Osmolality,Calculated 281.2 MOS/KG (273-304); Potassium 5.2 MMOL/L (3.5-5.1)
[2021-07-02] MEDS ORDERED: SODIUM POLYSTYRENE SULFATE 15 GM/60 ML BOTTLE PO STA (07:45)
[2021-07-02 07:55] VITALS: BP 124/92
[2021-07-02] MEDS: carvediloL 3.125 MG TABLET PO SCH (08:23)
[2021-07-02] MEDS: PANTOPRAZOLE 40 MG TABLET PO SCH (08:23)
[2021-07-02] MEDS: predniSONE 20 MG TABLET PO SCH (08:23)
[2021-07-02] MEDS ORDERED: FUROSEMIDE 40 MG TABLET PO SCH (09:00)
[2021-07-02 13:39] LABS: Calcium 8.6 MG/DL (8.5-10.1); Osmolality,Calculated 288.7 MOS/KG (273-304); Potassium 4.9 MMOL/L (3.5-5.1)
[2021-07-02] MEDS: LEVOFLOXACIN INJ 500 MG/100 ML PREMIX IV SCH (13:53)
== END 2021-07-02 18:29 | disposition home or self-care (01) | DRG 194 ==
LOC: N.ED 02:35 → N.EDINP 05:06 → SUATTDRO 05:06 → N.TELES 13:50
PROVIDERS: ADMIT Internal Medicine; ATTEND Internal Medicine

== ENCOUNTER 2021-07-19 20:10 | Observation (INO) ==
[2021-07-19 20:33] LABS: Basophils % 0.3 % (0.0-0.8); Eosinophils % 0.2 % (0.00-10.9); Hematocrit 40.7 VOL% (42.0-52.0); Hemoglobin 12.7 GM/DL (14.0-18.0); Immature Granulocytes % 0.2 %; Immature Granulocytes Absolute 0.03 #; Lymphocytes # 2.1 10*3/uL (1.4-4.0); Lymphocytes % 16.9 % (21.2-54.2); Mean Corpuscular HGB Conc 31.2 GM/DL (32-36); Mean Corpuscular Volume 97.6 FL (87-102); Mean Platelet Volume 11.8 FL (9.6-12.0); Monocytes % 9.4 % (1.7-12.7); Platelet Count 223 T/CUMM (130-400); Red Blood Count 4.17 MC/CUMM (3.8-5.5); Red Cell Distribution Width 15.9 % (9.3-17.3); White Blood Count 12.4 T/CUMM (4-12)
[2021-07-19 20:40] LABS: INR 1.2; PT Patient Result 13.1 SECS (10.5-12.0); Partial Thromboplastin Time 29.4 SECS (23.8-32.1)
[2021-07-19 20:58] LABS: Albumin 1.9 G/DL (3.4-5.0); Bilirubin,Total 0.6 MG/DL (0.20-1.00); Osmolality,Calculated 295.1 MOS/KG (273-304); Potassium 3.6 MMOL/L (3.5-5.1); Total Protein 3.6 G/DL (6.4-8.2)
[2021-07-19 21:03] LABS: Calcium 5.4 MG/DL (8.5-10.1)
[2021-07-19] MEDS ORDERED: MAGNESIUM SULF RIDER 2 GM/50 ML PREMIX IV STA (21:10)
[2021-07-19] MEDS ORDERED: CALCIUM CHLORIDE 1,000 MG/10 ML SYRINGE IV STA (21:10)
[2021-07-19] MEDS ORDERED: PIPERACILLIN/TAZOBACTAM 3,375 MG in SODIUM CHLORIDE 0.9% 100 ML IV STA (21:12)
[2021-07-19] MEDS ORDERED: methylPREDNISolone SOD SUC 125 MG/2 ML VIAL IV STA (21:12)
[2021-07-19] MEDS ORDERED: ALBUTEROL NEB SOLN 5 MG/ML 20 ML/BOTTLE CONT NEB SCH (21:30)
[2021-07-19] MEDS ORDERED: ONDANSETRON 4 MG/2 ML VIAL ONE (21:35)
[2021-07-19] MEDS ORDERED: ONDANSETRON 4 MG/2 ML VIAL IV STA (21:36)
[2021-07-19] MEDS ORDERED: GLUCAGON 1 MG VIAL IM PRN (22:09)
[2021-07-19] MEDS ORDERED: DEXTROSE 50% 25 GM/50 ML VIAL IV PRN (22:09)
[2021-07-19] MEDS ORDERED: ACETAMINOPHEN 325 MG TABLET PO PRN (22:15)
[2021-07-19] MEDS ORDERED: ONDANSETRON 4 MG/2 ML VIAL IV PRN (22:15)
[2021-07-20 01:13] LABS: Basophils % 0.2 % (0.0-0.8); Hematocrit 43.2 VOL% (42.0-52.0); Hemoglobin 13.1 GM/DL (14.0-18.0); Immature Granulocytes % 0.8 %; Lymphocytes # 0.4 10*3/uL (1.4-4.0); Lymphocytes % 3.3 % (21.2-54.2); Mean Corpuscular HGB Conc 30.3 GM/DL (32-36); Mean Corpuscular Volume 97.3 FL (87-102); Mean Platelet Volume 11.1 FL (9.6-12.0); Monocytes % 0.9 % (1.7-12.7); NRBC # 0.02 10*3/uL; Neutrophils % 94.8 % (38.7-73.9); Platelet Count 240 T/CUMM (130-400); Red Blood Count 4.44 MC/CUMM (3.8-5.5); Red Cell Distribution Width 15.6 % (9.3-17.3); White Blood Count 12.2 T/CUMM (4-12)
[2021-07-20 01:27] LABS: Calcium 9.5 MG/DL (8.5-10.1); Osmolality,Calculated 285.5 MOS/KG (273-304); Potassium 5.3 MMOL/L (3.5-5.1)
[2021-07-20] MEDS: methylPREDNISolone SOD SUC 40 MG/1 ML VIAL IV SCH ×3 (05:56→21:16)
[2021-07-20] MEDS: ATORVASTATIN 80 MG TABLET PO SCH (08:23)
[2021-07-20] MEDS: PANTOPRAZOLE 40 MG TABLET PO SCH (08:23)
[2021-07-20] MEDS: lisinopriL 2.5 MG TABLET PO SCH (08:23)
[2021-07-20] MEDS: CALCIUM (CARBONATE) 500 MG TABLET PO SCH (08:23)
[2021-07-20] MEDS: AZITHROMYCIN 250 MG TABLET PO SCH (08:23)
[2021-07-20] MEDS: carvediloL 3.125 MG TABLET PO SCH ×2 (08:26→21:18)
[2021-07-20] MEDS: MAGNESIUM OXIDE 400 MG TABLET PO SCH ×2 (08:26→21:17)
[2021-07-20] MEDS ORDERED: APIXABAN 5 MG TABLET PO SCH (09:00)
[2021-07-20] MEDS: BUDESONIDE/FORMOTEROL 160-4.5 INHALER 6 GM INH SCH ×2 (11:14→21:19)
[2021-07-20 15:49] LABS: Calcium 8.9 MG/DL (8.5-10.1); Osmolality,Calculated 281.1 MOS/KG (273-304); Potassium 5.2 MMOL/L (3.5-5.1)
[2021-07-20] MEDS: APIXABAN 5 MG TABLET PO SCH (21:18)
[2021-07-21 04:48] LABS: Basophils % 0.1 % (0.0-0.8); Hematocrit 35.9 VOL% (42.0-52.0); Hemoglobin 11.3 GM/DL (14.0-18.0); Immature Granulocytes % 0.7 %; Lymphocytes # 0.6 10*3/uL (1.4-4.0); Mean Corpuscular HGB Conc 31.5 GM/DL (32-36); Mean Platelet Volume 11.5 FL (9.6-12.0); Monocytes % 3.9 % (1.7-12.7); NRBC # 0.02 10*3/uL; Neutrophils % 91.3 % (38.7-73.9); Platelet Count 253 T/CUMM (130-400); Red Cell Distribution Width 15.3 % (9.3-17.3); White Blood Count 15.2 T/CUMM (4-12)
[2021-07-21] MEDS: methylPREDNISolone SOD SUC 40 MG/1 ML VIAL IV SCH ×2 (05:04→15:08)
[2021-07-21 05:11] LABS: Band Neutrophils 5 % (0-10); Lymphocytes 3 % (20-55); Platelet Estimate Adequate; Segmented Neutrophils 89 % (50-85); Total Cells Counted 100
[2021-07-21 05:18] LABS: Calcium 8.4 MG/DL (8.5-10.1); Osmolality,Calculated 286.4 MOS/KG (273-304); Potassium 5.2 MMOL/L (3.5-5.1)
[2021-07-21] MEDS ORDERED: SODIUM POLYSTYRENE SULFATE 15 GM/60 ML BOTTLE PO STA (08:26)
[2021-07-21] MEDS: BUDESONIDE/FORMOTEROL 160-4.5 INHALER 6 GM INH SCH (10:21)
[2021-07-21] MEDS: lisinopriL 2.5 MG TABLET PO SCH (10:21)
[2021-07-21] MEDS: carvediloL 3.125 MG TABLET PO SCH (10:21)
[2021-07-21] MEDS: MAGNESIUM OXIDE 400 MG TABLET PO SCH (10:21)
[2021-07-21] MEDS: ATORVASTATIN 80 MG TABLET PO SCH (10:21)
[2021-07-21] MEDS: APIXABAN 5 MG TABLET PO SCH (10:22)
[2021-07-21] MEDS: CALCIUM (CARBONATE) 500 MG TABLET PO SCH (10:22)
[2021-07-21] MEDS: PANTOPRAZOLE 40 MG TABLET PO SCH (10:22)
[2021-07-21] MEDS: AZITHROMYCIN 250 MG TABLET PO SCH (10:22)
[2021-07-21 11:46] VITALS: BP 90/68
== END 2021-07-21 15:08 | disposition home or self-care (01) ==
LOC: N.EDINP 20:10 → N.ED 20:10 → SUATTDRO 22:28 → N.EDINP 23:53 → N.5E 07-20 00:19
PROVIDERS: ADMIT Internal Medicine; ATTEND Internal Medicine

== ENCOUNTER 2021-09-15 22:38 | Inpatient (IN) ==
[2021-09-15] MEDS ORDERED: ONDANSETRON 4 MG/2 ML VIAL IV STA (22:54)
[2021-09-15] MEDS ORDERED: methylPREDNISolone SOD SUC 125 MG/2 ML VIAL IV STA (22:54)
[2021-09-15] MEDS ORDERED: MORPHINE 2 MG/1 ML SYRINGE IV STA (22:54)
[2021-09-15] MEDS ORDERED: ALBUTEROL NEB SOLN 5 MG/ML 20 ML/BOTTLE CONT NEB SCH (23:00)
[2021-09-15] MEDS ORDERED: ALBUTEROL 2.5 MG/3 ML NEB RESP TX ONE (23:18)
[2021-09-15 23:24] LABS: Basophils # 0.1 10*3/uL (0.0-0.2); Basophils % 0.3 % (0.0-0.8); Eosinophils # 0.2 10*3/uL (0.0-0.87); Eosinophils % 1.2 % (0.00-10.9); Hematocrit 45.7 VOL% (42.0-52.0); Hemoglobin 14.1 GM/DL (14.0-18.0); Immature Granulocytes % 0.3 %; Immature Granulocytes Absolute 0.06 #; Lymphocytes # 2.1 10*3/uL (1.4-4.0); Mean Corpuscular HGB Conc 30.9 GM/DL (32-36); Mean Corpuscular Volume 98.1 FL (87-102); Mean Platelet Volume 10.7 FL (9.6-12.0); Monocytes % 8.9 % (1.7-12.7); Neutrophils % 77.3 % (38.7-73.9); Platelet Count 276 T/CUMM (130-400); Red Blood Count 4.66 MC/CUMM (3.8-5.5); Red Cell Distribution Width 14.6 % (9.3-17.3); White Blood Count 17.3 T/CUMM (4-12)
[2021-09-15 23:41] LABS: ABG Base Excess 10.4 MMOL/L (-2.5-2.5); ABG HCO3 34.1 MMOL/L (20-26); ABG Oxygen Saturation 93.5 % (95-100); ABG PH 7.287 (7.35-7.45); ABG PO2 75.3 MM HG (80-95)
[2021-09-15 23:44] LABS: ABG PCO2 87.5 MM HG (35-48)
[2021-09-15 23:50] LABS: Alanine Aminotransferase 24 U/L (16-61); Albumin 3.1 G/DL (3.4-5.0); Alkaline Phosphatase 102 U/L (45-117); Aspartate Amino Transferase 22 U/L (0-37); Bilirubin,Total < 0.39 MG/DL (0.20-1.00); Blood Urea Nitrogen 17 MG/DL (7-18); Calcium 8.5 MG/DL (8.5-10.1); Carbon Dioxide 38 MMOL/L (21-32); Estimated Glom Filtration Rate 94 ML/MIN; Glucose 170 MG/DL (74-106); Osmolality,Calculated 291.8 MOS/KG (273-304); Potassium 4.1 MMOL/L (3.5-5.1); Sodium 144 MMOL/L (136-145); Total Protein 6.4 G/DL (6.4-8.2)
[2021-09-16 01:54] LABS: ABG Base Excess 10.8 MMOL/L (-2.5-2.5); ABG HCO3 34.5 MMOL/L (20-26); ABG Oxygen Saturation 97.9 % (95-100); ABG PH 7.314 (7.35-7.45); ABG TCO2 36.4 MMOL/L (23-27)
[2021-09-16 01:55] LABS: ABG PCO2 81.2 MM HG (35-48)
[2021-09-16] MEDS ORDERED: ONDANSETRON 4 MG/2 ML VIAL IV PRN (02:12)
[2021-09-16] MEDS ORDERED: GLUCAGON 1 MG VIAL IM PRN (02:12)
[2021-09-16] MEDS ORDERED: ACETAMINOPHEN 325 MG TABLET PO PRN (02:12)
[2021-09-16] MEDS ORDERED: DEXTROSE 10% 250 ML BAG IV PRN (02:12)
[2021-09-16 03:17] LABS: Bilirubin,Urine Negative (Negative); Blood, Urine Negative (Negative); Calcium Oxalate Crystals,Urine Occasional /HPF (Few); Glucose,Urine (UA) Negative (Negative); Ketones,Urine Negative (Negative); Nitrite,Urine Negative (Negative); Protein,Urine Negative; Squamous Epithelial Cell,Urine Occasional /HPF (0-10); Urine Appearance CLEAR (Clear); Urine Color Yellow (Yellow); Urine Specific Gravity 1.021 (1.001-1.035)
[2021-09-16 03:50] LABS: Barbiturates Screen,Urine Negative (Negative); Benzodiazepines Screen,Urine Negative (Negative); Cannabinoid Screen,Urine Positive (Negative); Opiate Screen,Urine Positive (Negative); Phencyclidine Screen,Urine Negative (Negative)
[2021-09-16] MEDS: MORPHINE 2 MG/1 ML SYRINGE IV PRN (03:56)
[2021-09-16] MEDS: LEVOFLOXACIN INJ 500 MG/100 ML PREMIX IV SCH (04:00)
[2021-09-16 05:36] LABS: Calcium 9.1 MG/DL (8.5-10.1); Osmolality,Calculated 284.4 MOS/KG (273-304); Potassium 4.6 MMOL/L (3.5-5.1)
[2021-09-16] MEDS: methylPREDNISolone SOD SUC 125 MG/2 ML VIAL IV SCH ×3 (05:41→21:17)
[2021-09-16 05:55] LABS: Basophils % 0.2 % (0.0-0.8); Hematocrit 41.7 VOL% (42.0-52.0); Hemoglobin 12.7 GM/DL (14.0-18.0); Immature Granulocytes % 0.5 %; Immature Granulocytes Absolute 0.08 #; Lymphocytes # 0.5 10*3/uL (1.4-4.0); Lymphocytes % 2.9 % (21.2-54.2); Mean Corpuscular HGB Conc 30.5 GM/DL (32-36); Mean Corpuscular Volume 98.6 FL (87-102); Mean Platelet Volume 11.3 FL (9.6-12.0); Monocytes % 0.4 % (1.7-12.7); Platelet Count 241 T/CUMM (130-400); Red Blood Count 4.23 MC/CUMM (3.8-5.5); Red Cell Distribution Width 14.5 % (9.3-17.3)
[2021-09-16 06:01] LABS: Lymphocytes 2 % (20-55); Platelet Estimate Normal; Segmented Neutrophils 97 % (50-85); Total Cells Counted 100
[2021-09-16] MEDS: ALBUTEROL/IPRATROPIUM 3 ML NEB RESP TX SCH ×3 (07:51→20:19)
[2021-09-16 08:40] LABS: ABG Base Excess 8.8 MMOL/L (-2.5-2.5); ABG HCO3 32.3 MMOL/L (20-26); ABG PH 7.318 (7.35-7.45); ABG PO2 58.1 MM HG (80-95); ABG TCO2 34.1 MMOL/L (23-27); Allen Test Positive
[2021-09-16 08:47] LABS: ABG PCO2 74.9 MM HG (35-48)
[2021-09-16] MEDS ORDERED: ALBUTEROL 2.5 MG/3 ML NEB RESP TX PRN (09:43)
[2021-09-16] MEDS: INSULIN LISPRO 100 UNIT/ML SUBCUT SCH ×4 (09:55→21:16)
[2021-09-16] MEDS: APIXABAN 5 MG TABLET PO SCH ×2 (09:56→21:16)
[2021-09-16] MEDS: PANTOPRAZOLE 40 MG TABLET PO SCH (09:56)
[2021-09-17] MEDS: ALBUTEROL/IPRATROPIUM 3 ML NEB RESP TX SCH ×4 (00:45→20:00)
[2021-09-17] MEDS: LEVOFLOXACIN INJ 500 MG/100 ML PREMIX IV SCH (02:00)
[2021-09-17] MEDS: methylPREDNISolone SOD SUC 125 MG/2 ML VIAL IV SCH ×3 (05:05→21:44)
[2021-09-17 06:00] LABS: Basophils % 0.1 % (0.0-0.8); Hematocrit 38.1 VOL% (42.0-52.0); Hemoglobin 11.9 GM/DL (14.0-18.0); Immature Granulocytes % 1.5 %; Immature Granulocytes Absolute 0.32 #; Lymphocytes # 0.9 10*3/uL (1.4-4.0); Lymphocytes % 4.1 % (21.2-54.2); Mean Corpuscular HGB Conc 31.2 GM/DL (32-36); Mean Corpuscular Volume 96.2 FL (87-102); Mean Platelet Volume 11.4 FL (9.6-12.0); Monocytes % 2.2 % (1.7-12.7); Neutrophils % 92.1 % (38.7-73.9); Platelet Count 230 T/CUMM (130-400); Red Blood Count 3.96 MC/CUMM (3.8-5.5); Red Cell Distribution Width 14.2 % (9.3-17.3); White Blood Count 21.1 T/CUMM (4-12)
[2021-09-17 06:32] LABS: Calcium 9.2 MG/DL (8.5-10.1); Osmolality,Calculated 280.7 MOS/KG (273-304); Potassium 4.4 MMOL/L (3.5-5.1)
[2021-09-17 06:37] LABS: Band Neutrophils 2 % (0-10); Hypochromia Slight; Lymphocytes 3 % (20-55); Microcytosis Slight; Platelet Estimate Adequate; Segmented Neutrophils 93 % (50-85); Total Cells Counted 100
[2021-09-17] MEDS: PANTOPRAZOLE 40 MG TABLET PO SCH (09:03)
[2021-09-17] MEDS: APIXABAN 5 MG TABLET PO SCH ×2 (09:03→21:44)
[2021-09-17] MEDS: INSULIN LISPRO 100 UNIT/ML SUBCUT SCH ×4 (09:08→21:44)
[2021-09-17] MEDS: LEVOFLOXACIN INJ 750 MG/150 ML PREMIX IV SCH (14:28)
[2021-09-17] MEDS: MORPHINE 2 MG/1 ML SYRINGE IV PRN (14:45)
[2021-09-18] MEDS: ALBUTEROL/IPRATROPIUM 3 ML NEB RESP TX SCH ×4 (00:10→19:45)
[2021-09-18] MEDS ORDERED: ZALEPLON 5 MG CAPSULE PO PRN (00:46)
[2021-09-18 05:00] LABS: Basophils % 0.1 % (0.0-0.8); Hematocrit 37.2 VOL% (42.0-52.0); Hemoglobin 11.7 GM/DL (14.0-18.0); Immature Granulocytes % 1.8 %; Immature Granulocytes Absolute 0.36 #; Lymphocytes # 0.7 10*3/uL (1.4-4.0); Lymphocytes % 3.8 % (21.2-54.2); Mean Corpuscular HGB Conc 31.5 GM/DL (32-36); Mean Corpuscular Volume 95.9 FL (87-102); Mean Platelet Volume 11.2 FL (9.6-12.0); Monocytes % 3.6 % (1.7-12.7); Neutrophils % 90.7 % (38.7-73.9); Platelet Count 225 T/CUMM (130-400); Red Blood Count 3.88 MC/CUMM (3.8-5.5); Red Cell Distribution Width 14.6 % (9.3-17.3); White Blood Count 19.5 T/CUMM (4-12)
[2021-09-18 05:27] LABS: Band Neutrophils 1 % (0-10); Osmolality,Calculated 290.4 MOS/KG (273-304); Platelet Estimate Normal; Potassium 4.5 MMOL/L (3.5-5.1); Segmented Neutrophils 95 % (50-85); Total Cells Counted 100
[2021-09-18] MEDS: methylPREDNISolone SOD SUC 125 MG/2 ML VIAL IV SCH ×3 (05:31→21:05)
[2021-09-18] MEDS: PANTOPRAZOLE 40 MG TABLET PO SCH (08:56)
[2021-09-18] MEDS: APIXABAN 5 MG TABLET PO SCH ×2 (08:56→20:27)
[2021-09-18] MEDS: NICOTINE 21 MG/24 HR PATCH TRANSDERM PRN (09:06)
[2021-09-18] MEDS: MORPHINE 2 MG/1 ML SYRINGE IV PRN ×3 (09:10→20:28)
[2021-09-18] MEDS: INSULIN LISPRO 100 UNIT/ML SUBCUT SCH ×4 (09:14→20:58)
[2021-09-18] MEDS: LEVOFLOXACIN INJ 750 MG/150 ML PREMIX IV SCH (10:00)
[2021-09-19] MEDS: ALBUTEROL/IPRATROPIUM 3 ML NEB RESP TX SCH ×4 (00:45→19:30)
[2021-09-19] MEDS: MORPHINE 2 MG/1 ML SYRINGE IV PRN ×5 (00:47→22:39)
[2021-09-19] MEDS: methylPREDNISolone SOD SUC 125 MG/2 ML VIAL IV SCH ×3 (05:07→23:37)
[2021-09-19 06:00] LABS: Basophils % 0.2 % (0.0-0.8); Hematocrit 38.9 VOL% (42.0-52.0); Hemoglobin 12.1 GM/DL (14.0-18.0); Immature Granulocytes % 1.6 %; Lymphocytes # 1.1 10*3/uL (1.4-4.0); Lymphocytes % 5.5 % (21.2-54.2); Mean Corpuscular HGB Conc 31.1 GM/DL (32-36); Mean Corpuscular Volume 95.3 FL (87-102); Mean Platelet Volume 11.4 FL (9.6-12.0); Monocytes % 4.9 % (1.7-12.7); NRBC # 0.02 10*3/uL; Neutrophils % 87.8 % (38.7-73.9); Platelet Count 214 T/CUMM (130-400); Red Blood Count 4.08 MC/CUMM (3.8-5.5); Red Cell Distribution Width 14.7 % (9.3-17.3); White Blood Count 19.2 T/CUMM (4-12)
[2021-09-19 06:20] LABS: Calcium 8.9 MG/DL (8.5-10.1); Osmolality,Calculated 290.5 MOS/KG (273-304); Potassium 4.3 MMOL/L (3.5-5.1)
[2021-09-19] MEDS: INSULIN LISPRO 100 UNIT/ML SUBCUT SCH ×4 (08:06→20:52)
[2021-09-19] MEDS: NICOTINE 21 MG/24 HR PATCH TRANSDERM PRN (09:11)
[2021-09-19] MEDS: APIXABAN 5 MG TABLET PO SCH ×2 (09:12→20:52)
[2021-09-19] MEDS: PANTOPRAZOLE 40 MG TABLET PO SCH (09:12)
[2021-09-19] MEDS: LEVOFLOXACIN INJ 750 MG/150 ML PREMIX IV SCH (10:15)
[2021-09-19 11:57] LABS: ABG Base Excess 6.3 MMOL/L (-2.5-2.5); ABG HCO3 30.1 MMOL/L (20-26); ABG Oxygen Saturation 96.2 % (95-100); ABG PCO2 54.1 MM HG (35-48); ABG PH 7.391 (7.35-7.45); ABG PO2 85.7 MM HG (80-95)
[2021-09-19] MEDS: lisinopriL 2.5 MG TABLET PO SCH (15:12)
[2021-09-19] MEDS: FUROSEMIDE 20 MG TABLET PO SCH (15:12)
[2021-09-19] MEDS: MEROPENEM 500 MG in SODIUM CHLORIDE 0.9% 100 ML IV SCH ×2 (15:18→20:52)
[2021-09-19] MEDS: LINEZOLID INJ 600 MG/300 ML PREMIX IV SCH (15:59)
[2021-09-19] MEDS: ATORVASTATIN 80 MG TABLET PO SCH (20:52)
[2021-09-19] MEDS: MELATONIN 3 MG TABLET PO SCH (20:52)
[2021-09-19] MEDS ORDERED: methylPREDNISolone SOD SUC 125 MG/2 ML VIAL IV SCH (21:00)
[2021-09-20] MEDS: ALBUTEROL/IPRATROPIUM 3 ML NEB RESP TX SCH ×4 (00:30→20:05)
[2021-09-20] MEDS: LINEZOLID INJ 600 MG/300 ML PREMIX IV SCH ×2 (04:00→16:00)
[2021-09-20] MEDS: MORPHINE 2 MG/1 ML SYRINGE IV PRN (04:25)
[2021-09-20] MEDS: MEROPENEM 500 MG in SODIUM CHLORIDE 0.9% 100 ML IV SCH ×3 (05:07→21:56)
[2021-09-20] MEDS: INSULIN LISPRO 100 UNIT/ML SUBCUT SCH ×4 (09:11→21:55)
[2021-09-20] MEDS: PANTOPRAZOLE 40 MG TABLET PO SCH (09:12)
[2021-09-20] MEDS: APIXABAN 5 MG TABLET PO SCH ×2 (09:12→21:54)
[2021-09-20] MEDS: FUROSEMIDE 20 MG TABLET PO SCH (09:12)
[2021-09-20] MEDS: lisinopriL 2.5 MG TABLET PO SCH (09:12)
[2021-09-20] MEDS: methylPREDNISolone SOD SUC 125 MG/2 ML VIAL IV SCH (13:04)
[2021-09-20] MEDS: MELATONIN 3 MG TABLET PO SCH (21:54)
[2021-09-20] MEDS: ATORVASTATIN 80 MG TABLET PO SCH (21:54)
[2021-09-21] MEDS: methylPREDNISolone SOD SUC 125 MG/2 ML VIAL IV SCH ×2 (00:16→14:06)
[2021-09-21] MEDS: ALBUTEROL/IPRATROPIUM 3 ML NEB RESP TX SCH ×3 (00:40→13:22)
[2021-09-21] MEDS: LINEZOLID INJ 600 MG/300 ML PREMIX IV SCH (03:04)
[2021-09-21] MEDS: MEROPENEM 500 MG in SODIUM CHLORIDE 0.9% 100 ML IV SCH ×2 (05:40→14:06)
[2021-09-21] MEDS: INSULIN LISPRO 100 UNIT/ML SUBCUT SCH ×2 (08:10→12:11)
[2021-09-21 08:43] LABS: Basophils # 0.1 10*3/uL (0.0-0.2); Basophils % 0.3 % (0.0-0.8); Hematocrit 39.9 VOL% (42.0-52.0); Hemoglobin 12.6 GM/DL (14.0-18.0); Immature Granulocytes % 3.8 %; Immature Granulocytes Absolute 0.71 #; Lymphocytes # 1.6 10*3/uL (1.4-4.0); Lymphocytes % 8.7 % (21.2-54.2); Mean Corpuscular HGB Conc 31.6 GM/DL (32-36); Mean Corpuscular Volume 94.1 FL (87-102); Monocytes % 5.2 % (1.7-12.7); NRBC # 0.05 10*3/uL; Platelet Count 199 T/CUMM (130-400); Red Blood Count 4.24 MC/CUMM (3.8-5.5); Red Cell Distribution Width 14.8 % (9.3-17.3); White Blood Count 18.7 T/CUMM (4-12)
[2021-09-21 08:59] LABS: Calcium 8.7 MG/DL (8.5-10.1); Osmolality,Calculated 290.5 MOS/KG (273-304); Potassium 4.4 MMOL/L (3.5-5.1)
[2021-09-21 09:05] LABS: Hypochromia Slight; Lymphocytes 14 % (20-55); Microcytosis Slight; Platelet Estimate Adequate; Segmented Neutrophils 80 % (50-85); Total Cells Counted 100
[2021-09-21] MEDS: FUROSEMIDE 20 MG TABLET PO SCH (09:14)
[2021-09-21] MEDS: APIXABAN 5 MG TABLET PO SCH (09:14)
[2021-09-21] MEDS: lisinopriL 2.5 MG TABLET PO SCH (09:14)
[2021-09-21] MEDS: PANTOPRAZOLE 40 MG TABLET PO SCH (09:15)
[2021-09-21 13:00] VITALS: BP 124/69
== END 2021-09-21 14:30 | disposition home or self-care (01) | DRG 133 ==
LOC: N.ED 22:38 → N.EDINP 09-16 02:12 → SUATTDRO 09-16 02:12 → N.TELES 09-16 03:30
PROVIDERS: ADMIT Hospitalist; ATTEND Emergency Medicine